=== PATIENT | female | born 1935 | race African-American/Black ===

== ENCOUNTER 2016-11-08 09:46 | Inpatient (IN) ==
[2016-11-08 10:19] LABS: Amorphous Crystals,Urine Occasional /HPF (Few); Apearance,Urine Slightly Hazy (Clear); Bacteria,Urine Moderate /HPF (Few); Bilirubin,Urine Negative (Negative); Blood, Urine Negative (Negative); Glucose,Urine (UA) Negative (Negative); Hyaline Casts,Urine 5 /LPF (0-3); Ketones,Urine Negative (Negative); Nitrite,Urine Positive (Negative); Protein,Urine Negative; RBC,Urine 1 /HPF (0-4); Squamous Epithelial Cell,Urine Occasional /HPF (0-10); Urine Color Straw (Yellow); Urine Specific Gravity 1.004 (1.001-1.035); Urine Urobilinogen < 2.0 EU/DL (0.2-1.0); WBC,Urine 31 /HPF (0-6)
[2016-11-08] MEDS ORDERED: cefTRIAXone 1,000 MG in SODIUM CHLORIDE 0.9% 100 ML IV STA (10:51)
[2016-11-08] MEDS ORDERED: cefTRIAXone 1,000 MG VIAL ONE (11:03)
[2016-11-08] MEDS ORDERED: SODIUM CHLORIDE 0.9% 100 ML IV ONE (11:04)
[2016-11-08 11:24] LABS: Eosinophils % 0.3 % (0.00-10.9); Hematocrit 41.1 VOL% (35.7-47.0); Hemoglobin 14.2 GM/DL (12.0-16.0); Immature Granulocytes % 0.3 %; Immature Granulocytes Absolute 0.01 #; Lymphocytes # 0.7 10*3/uL (1.4-4.0); Lymphocytes % 22.9 % (21.3-54.2); Mean Corpuscular HGB Conc 34.5 GM/DL (32-36); Mean Corpuscular Hemoglobin 30 PG (27-34); Mean Corpuscular Volume 85.6 FL (87-102); Mean Platelet Volume 10.5 FL (9.6-12.0); Monocytes # 0.4 10*3/uL (0.11-0.8); Monocytes % 11.8 % (1.7-12.7); Neutrophils # 1.9 10*3/uL (1.4-7.4); Neutrophils % 63.7 % (38.7-73.9); Platelet Count 222 T/CUMM (130-400); Red Cell Distribution Width 14.4 % (9.3-17.3)
[2016-11-08 11:57] LABS: Blood Urea Nitrogen 12 MG/DL (7-18); Calcium 9.7 MG/DL (8.5-10.1); Glucose 96 MG/DL (74-106); Magnesium 2.2 MG/DL (1.8-2.4); Potassium 3.3 MMOL/L (3.5-5.1); Sodium 136 MMOL/L (136-145); Troponin I Only < 0.015 NG/ML (0.00-0.045)
[2016-11-08 12:03] LABS: Free T4 (Free Thyroxine) 1.43 NG/DL (0.76-1.46); Thyroid Stimulating Hormone 1.99 uIU/ml (0.358-3.74)
--- NOTE | 2016-11-08 12:08 | XRay Report ---
XR chest 1V portable Indication: Chest pain and palpitations. Chest one view: Comparison 10/25/2016. Implanted electronic device of the left chest is unchanged. Heart size is normal. Aorta is tortuous. Lungs are clear. Pleural spaces are clear. Impression: No acute cardiopulmonary disease. PROCEDURE INTERPRETED AT [facility] DEPARTMENT OF RADIOLOGY Final Report Signed by: Jose Enriquez M.D.
--- NOTE | 2016-11-08 14:43 | Cardiology Consult Note ---
Assessment and Plan (1) Episode of syncope Status: Acute Assessment and plan: Not clear what this is. With everything else ongoing consideration of this is vasovagal episode related to her other symptoms especially GI. Apparently her event monitor did not turkey picker any kind of rate or rhythm disturbance of significance. At this time no further cardiac evaluation is needed. She would need to continue her monitor at home. Her other issues including GI etc. may need further evaluation at this time. Current Visit: Yes (2) Gastrointestinal complaints Status: Acute Assessment and plan: Sounds like she is developing diarrhea while in the emergency room. She has had some this prior to coming the emergency room. Also history indicates that with her antibiotic she has had some GI issues. Certainly this may have triggered a vasovagal response at home. Current Visit: Yes (3) Heart palpitations Status: Chronic Assessment and plan: This is a chronic recurrent issue for this patient. She is only having some PACs here in the emergency room. She does continue to wear her event monitor. Current Visit: No (4) Urinary tract infection Status: Acute Assessment and plan: This appears to be chronic recurrent on antibiotics frequently. These antibiotics may be causes a lot of her GI symptoms that she has had intermittently. Current Visit: No (5) GERD (gastroesophageal reflux disease) Status: Chronic Assessment and plan: This is a chronic recurrent issue for the patient that at times may be exacerbated by her antibiotics. Current Visit: No History of Present Illness - Data of Consult Patient: known to practice within the last 3 years Consult date: 11/08/16 Requesting Physician: Boogie Perez - Consult Narrative Reason for consult: Outpatient syncopal episode. History of present illness: Ms. Salcedo is a 81 year old female who has been followed by Dr. Fischer. Patient seen in the emergency room. She has had a 1 or 2 episodes of some SVT and her past history of SVT. She has had palpitations for 4-5 years been evaluated in [place] as well as here. I reviewed our office charts as well as hospital records. The patient apparently had an evaluation at [place] within the past year clean ischemic workup that was noninvasive that was reportedly negative. The patient is been in the hospital here and seen by Dr. Fischer as well as others having at least one documented ECG or more of rapid heart rate that may be a sinus versus SVT. The patient has been followed by Dr. fischer as an outpatient. Evaluation there has included echocardiogram that is really unremarkable. She has an event monitor only at this time. This morning she apparently had some of her palpitations symptomatology felt a little short of breath with this. Now she describes her palpitations being a fast heart rate. She had a book that had the blood pressure written down and heart rate that she measured at the time of her symptoms started. Her blood pressure is 150/68 with a heart rate is 74. She did not take any more. She describes what she felt was a syncopal episode after which she did not note any urinary incontinence or bowel incontinence. She did not traumatize herself. Her stomach did feel uneasy before and after this. She felt full finding across her forehead and face after this. EMS was summoned. I do not have those records. She has had similar episodes previously. She denies any chest pain. Since being in the emergency room her stomach is continue to bother her she states she has passed a lot of water what sounds like diarrhea. She has not had any nausea or vomiting but she has had a marked decreased appetite. She has had some weight loss over the last 8 months with a weight loss from a peak of 55.3 kg to 49.9 kg. She states when she gets up she feels like her heart running away with her sometimes pounding and that has happened some today. With the patient lying back she had a blood pressure 143/96 her heart rate of 84. I will see the patient up her blood pressure was 159/92 with a heart rate of 88. On standing the patient's blood pressure was 147/88 with a peak heart rate of 106 bpm and was sinus. I did note during my interview with the patient that she did have some PACs and occasional couplet. I did not appreciate any ventricular ectopy. In reviewing her history and her chart she has frequent recurrent urinary tract infections and on antibiotics persistently. She presently his parents to start antibiotics again for another urinary tract infection. Her lab work has been reviewed and her CBC does not reveal any acute changes other than her white count is now 3000. Her chemistries were really unremarkable. Potassium is 3.3. Troponins are nondetectable. Urinalysis with positive nitrites. A small number of leukocytes and moderate bacteria. Patient 's ECG today reveals sinus rhythm with PACs with some nonspecific T-wave abnormalities but no acute changes. In comparison to prior ECGs this is really unchanged. CC: - Home Medications and Allergies Home Medications: Home Medications Medication Instructions Recorded Confirmed Type Aspirin EC Tab 81 mg PO BID 03/04/16 11/08/16 History Atorvastatin [Lipitor] 10 mg PO BEDTIME 03/04/16 11/08/16 History Clorazepate [Tranxene] 3.75 mg PO BID PRN 03/04/16 11/08/16 History Metoprolol Succinate 50 mg PO QAM 03/04/16 11/08/16 History Polyethylene Glycol Powder 17 gm PO DAILY PRN 09/28/16 11/08/16 History [Miralax] Calcium (Carb)/Vit D 500-200 1 tablet PO DAILY 10/11/16 11/08/16 History [Oscal 500 + D] Potassium Chloride Cap/Tab [K Dur] 20 meq PO DAILY #14 tablet 10/25/16 11/08/16 Rx NIFEdipine [Nifedipine ER] 30 mg PO QAM 11/06/16 11/08/16 History Omeprazole [Prilosec] 20 mg PO DAILY #30 capsule 11/06/16 11/08/16 Rx Ondansetron Tab [Zofran Tab] 4 mg PO Q6H PRN #20 tablet 11/06/16 11/08/16 Rx Sulfameth/Trimeth 800-160 Tab 1 tablet PO BID 11/08/16 11/08/16 History [Bactrim DS Tab] Allergies/Adverse Reactions: Allergies Allergy/AdvReac Type Severity Reaction Status Date / Time ciprofloxacin [From Cipro] Allergy HIVES Verified 11/08/16 09:51 caffeine AdvReac Palpitation Verified 11/08/16 09:51 s Review of systems: Constitutional: She has been having weight loss with decreased appetite. No fever chills. Decreased appetite. Eyes: Denies visual changes or loss of vision Ears: Denies decreased hearing, vertigo Nose, mouth and throat: Denies oral pain or lesions. Neck: Denies thyromegaly or masses. No stiffness. Cardiovascular: as per HPI Respiratory: Denies cough, hemoptysis, dyspnea on exertion, wheezing, snoring. At times some dyspnea. Gastrointestinal: Complaining of some nonspecific abdominal discomfort as well as some diarrhea since she has made to the emergency room. So this was started at home. Genitourinary: Dysuria that is frequently has had recurrent urinary tract infections. Musculoskeletal: Has had some arthritic symptomatology. Neurological: States she had a syncopal episode prior to arrival here, please see history present illness.. Denies strokes. Psychiatric: Her symptoms palpitations make her anxious. Endocrine: Decreased appetite and weight. 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 She is anxious. She is frail-appearing. Head exam: normal inspection, atraumatic, some temporal wasting. Eye exam: Pupils are equal and reactive. EOMI. There is no trauma. Ear exam: Anatomically normal. Normal auditory acuity to conversation. Oral exam: No significant oral lesions. Neck exam: normal inspection no JVD. No carotid bruit. Trachea is in midline. Respiratory exam: clear to auscultation bilaterally posteriorly and anteriorly with good air movement. No rales, rhonchi or wheezes. Cardiovascular exam: regular rate and rhythm, no murmur or gallop or rub. No precordial lift. Chest wall/torso: Anatomically normal. No tenderness, deformity. Somewhat scaphoid chest. Peripheral Pulses: 2+ throughout. GI/Abdominal exam: Flat somewhat scaphoid. Bowel sounds are present. No specific tenderness but the patient is uncomfortable palpation. Musculoskeletal/Extremities exam: normal inspection without edema or cyanosis. No deformities or trauma. Neurological exam: alert, oriented X3. There is no gross neurologic deficits. Psychiatric exam: normal affect, normal mood. She is somewhat anxious. Cognitive function is grossly intact. Skin exam: Warm. No rashes or other skin lesions. Result/EKG - Labs CBC & BMP: 11/08/16 10:37 11/08/16 10:37 Lab Results: I have reviewed the past 24 hour labs (Potassium is low. Troponins are nondetectable. Her white cell count is low.) Labs: Laboratory Results - last 24 hr 11/08/16 11/08/16 11/08/16 10:02 10:37 10:37 WBC 3.0 L RBC 4.80 Hgb 14.2 Hct 41.1 MCV 85.6 L MCH 30 MCHC 34.5 RDW 14.4 Plt Count 222 MPV 10.5 Neut % (Auto) 63.7 Lymph % (Auto) 22.9 [place] % (Auto) 11.8 Eos % (Auto) 0.3 Baso % (Auto) 1.0 H Neut # (Auto) 1.9 Lymph # (Auto) 0.7 L [place] # (Auto) 0.4 Eos # (Auto) 0.0 Baso # (Auto) 0.0 Immature Gran % 0.3 Nucleated RBC % 0.0 Immature Gran # 0.01 Nucleated RBCs # 0.00 Sodium 136 Potassium 3.3 L Chloride 98 Carbon Dioxide 27 Anion Gap 14.3 BUN 12 Creatinine 0.80 GFR Calculation 69 BUN/Creatinine Ratio 15.00 Glucose 96 Calculated Osmolality 271.0 L Calcium 9.7 Magnesium 2.2 Troponin I < 0.015 Free T4 TSH 3rd Generation Urine Color Straw Urine Appearance Slightly hazy Urine pH 8.0 Ur Specific [place] 1.004 Urine Protein Negative Urine Glucose (UA) Negative Urine Ketones Negative Urine Blood Negative Urine Nitrate Positive H Urine Bilirubin Negative Urine Urobilinogen < 2.0 H Urine Leukocytes Small H Urine RBC 1 Urine WBC 31 Ur Squamous Epith Cells Occasional Amorphous Crystals Occasional Urine Bacteria Moderate Hyaline Casts 5 Ur Culture Indicated? Results to follow 11/08/16 10:37 WBC RBC Hgb Hct MCV MCH MCHC RDW Plt Count MPV Neut % (Auto) Lymph % (Auto) [place] % (Auto) Eos % (Auto) Baso % (Auto) Neut # (Auto) Lymph # (Auto) [place] # (Auto) Eos # (Auto) Baso # (Auto) Immature Gran % Nucleated RBC % Immature Gran # Nucleated RBCs # Sodium Potassium Chloride Carbon Dioxide Anion Gap BUN Creatinine GFR Calculation BUN/Creatinine Ratio Glucose Calculated Osmolality Calcium Magnesium Troponin I Free T4 1.43 TSH 3rd Generation 1.990 Urine Color Urine Appearance Urine pH Ur Specific [place] Urine Protein Urine Glucose (UA) Urine Ketones Urine Blood Urine Nitrate Urine Bilirubin Urine Urobilinogen Urine Leukocytes Urine RBC Urine WBC Ur Squamous Epith Cells Amorphous Crystals Urine Bacteria Hyaline Casts Ur Culture Indicated? - Impressions Impressions: ECG with sinus rhythm with PACs with nonspecific T-wave flattening. No acute changes.
--- NOTE | 2016-11-08 17:02 | Hospitalist History & Physical ---
Assessment and Plan - Time spent with patient Time spent with patient: Greater than 30 minutes (1) Episode of syncope Status: Acute Assessment and plan: Currently she is a patient of Dr leon, she is wearing a Life Watch monitor (1 month), for past history of SVT episodes. Will consult cardiology. Will repeat a.m. labs. Current Visit: Yes (2) Urinary tract infection Status: Acute Assessment and plan: Admit to hospitalist services. Will start antibiotics. Will monitor vital signs. Current Visit: No (3) Heart palpitations Status: Chronic Assessment and plan: Currently wearing a Life Watch Monitor and being followed by Dr Leon. Cardiology has been consulted. Current Visit: No History of Present Illness Chief complaint: syncope, belly pain History of present illness: Ms. Salcedo is a very pleasant 81 year old AA female presented to [facility] ED via EMS w/ c/o palpitations, syncopal episode, associated shortness of breath with onset this a.m. Pt stated that she was given antibiotics ( bactrium) for UTI by her primary care doctor and that she took the medication for the first time ever this morning about 6a.m. and 1 hour later this caused excessive palpitations and a syncopal episode, (witnessed by her son) only lasting for a few seconds to a minute. She recently seen Dr leon for a follow-up visit for chest pain and at that time a Life Watch Monitor was placed (1 month). She denies nausea or vomiting, fever or chills. 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 After brief discussion with Dr Perez and Dr Serrato, it was agreed patient would be admitted to hospitalist services for further evaluation. Home medications to reviewed and reconciliation to follow. Cardiology consulted and has seen her in the ER as well. Home Medications Medication Instructions Recorded Confirmed Type Aspirin EC Tab 81 mg PO BID 03/04/16 11/08/16 History Atorvastatin [Lipitor] 10 mg PO BEDTIME 03/04/16 11/08/16 History Clorazepate [Tranxene] 3.75 mg PO BID PRN 03/04/16 11/08/16 History Metoprolol Succinate 50 mg PO QAM 03/04/16 11/08/16 History Polyethylene Glycol Powder 17 gm PO DAILY PRN 09/28/16 11/08/16 History [Miralax] Calcium (Carb)/Vit D 500-200 1 tablet PO DAILY 10/11/16 11/08/16 History [Oscal 500 + D] Potassium Chloride Cap/Tab [K Dur] 20 meq PO DAILY #14 tablet 10/25/16 11/08/16 Rx NIFEdipine [Nifedipine ER] 30 mg PO QAM 11/06/16 11/08/16 History Omeprazole [Prilosec] 20 mg PO DAILY #30 capsule 11/06/16 11/08/16 Rx Ondansetron Tab [Zofran Tab] 4 mg PO Q6H PRN #20 tablet 11/06/16 11/08/16 Rx Sulfameth/Trimeth 800-160 Tab 1 tablet PO BID 11/08/16 11/08/16 History [Bactrim DS Tab] Allergies Allergy/AdvReac Type Severity Reaction Status Date / Time ciprofloxacin [From Cipro] Allergy HIVES Verified 11/08/16 09:51 caffeine AdvReac Palpitation Verified 11/08/16 09:51 s Medical,Surgical,& Family Hx - Medical History Cardio: History of: CHF, Hypertension Psychological: History of: Anxiety Disorders Endocrine: History of: Dyslipidemia Genitourinary: History of: Recurring Urinary Tract Infections, 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 Exam - Constitutional Vitals: Period Temp Pulse Resp BP Sys/Rodriguez Pulse Ox Last 24 Hr 98.1 F-98.1 F 83-83 18-18 183-183/101-101 100 General appearance: normal weight, no acute distress - Head Head exam: Present: normal inspection - Eye Eye exam: Present: EOMI Pupils: Present: MARIANO - Neck Neck exam: Present: normal inspection - Respiratory Respiratory exam: Present: clear to auscultation bilaterally. Absent: wheezes - Cardiovascular Cardiovascular exam: Present: regular rate and rhythm - GI/Abdominal GI/Abdominal exam: Present: normal bowel sounds, soft. Absent: firm, tenderness , rebound - Extremities Exam Extremities exam: Present: full ROM. Absent: edema - Neurological Exam Neurological exam: Present: alert, oriented X3 - Psychiatric Psychiatric exam: Present: normal affect, normal mood - Skin Skin exam: Present: normal color, warm, dry Results - Labs CBC & BMP: 11/08/16 10:37 11/08/16 10:37 Lab Results: I have reviewed the past 24 hour labs - Diagnostic Findings Procedure: X-ray: report reviewed by me (Noacute cardiopulmonary disease)
--- NOTE | 2016-11-08 17:28 | Emergency Department Note ---
Tata Drummond Gwan, am scribing for, and in the presence of, Boogie Perez M.D. 10:02. Ana Drummond Howard T, M.D., personally performed the services described in this documentation, ascribed by Katia Payton in my presence, and it is both accurate and complete . Arrival - Arrival Chief Complaint: Arrhythmia/Palpitations Stated Complaint: palpatations ED Nursing Triage Note: pt to er 11 via ems coming from home with c/o having palpitations with sob onset this am. pt denies any n/v or chest pain Mode of Arrival: Stretcher Limitations: No Limitations Source: Patient, Old Records Reviewed, RN Notes Reviewed Time Seen by Provider: 11/08/16 09:54 - History of Present Illness HPI Narrative: Patient is a 81 y/o black female, with a hx of CHF and HTN, who presents to the ED with a c/o palpitations and associated SOB with an onset this morning. She is a very good historian. Pt stated that she was given antibiotics for UTI and that she administered medication for the first time this morning and this caused excessive palpitations. This also caused weakness and syncope prompted her visit to the ED for further evaluation. She noted that her syncope only lasted "a minute" and that this has happened before. Patient was last seen in ED 10/25/2016 for chest pain and was disposition home with instruction to f/u with [employer]. Nurses noted that pt has f/u with Dr. Leon and has received a Life Watch monitor that is now attached to chest. She denies any N/V or having any chest pain. She confirmed that her monitor is in place for 1 month , that it "beeps" with palpitations and that her heart problems began 2013. No other problems/complaints reported in ED. Onset (ago): hour(s) Consistency: constant Severity: moderate Allergies/Adverse Reactions: Allergies Allergy/AdvReac Type Severity Reaction Status Date / Time ciprofloxacin [From Cipro] Allergy HIVES Verified 11/08/16 09:51 caffeine AdvReac Palpitation Verified 11/08/16 09:51 s Home Medications: Home Medications Medication Instructions Recorded Confirmed Type Aspirin EC Tab 81 mg PO BID 03/04/16 11/08/16 History Atorvastatin [Lipitor] 10 mg PO BEDTIME 03/04/16 11/08/16 History Clorazepate [Tranxene] 3.75 mg PO BID PRN 03/04/16 11/08/16 History Metoprolol Succinate 50 mg PO QAM 03/04/16 11/08/16 History Polyethylene Glycol Powder 17 gm PO DAILY PRN 09/28/16 11/08/16 History [Miralax] Calcium (Carb)/Vit D 500-200 1 tablet PO DAILY 10/11/16 11/08/16 History [Oscal 500 + D] Potassium Chloride Cap/Tab [K Dur] 20 meq PO DAILY #14 tablet 10/25/16 11/08/16 Rx NIFEdipine [Nifedipine ER] 30 mg PO QAM 11/06/16 11/08/16 History Omeprazole [Prilosec] 20 mg PO DAILY #30 capsule 11/06/16 11/08/16 Rx Ondansetron Tab [Zofran Tab] 4 mg PO Q6H PRN #20 tablet 11/06/16 11/08/16 Rx Sulfameth/Trimeth 800-160 Tab 1 tablet PO BID 11/08/16 11/08/16 History [Bactrim DS Tab] Review of System - Review of System 12 point system: reviewed and no additional remarkable complaints except as stated - Review of System Constitutional: Present: fever. Absent: chills Eyes: Absent: discharge ( ) Head/Ears/Nose/Throat: Absent: earache Respiratory: Absent: cough Cardiovascular: Present: as per HPI, palpitations. Absent: chest pain Gastrointestinal: Absent: abdominal pain, nausea, vomiting, diarrhea Genitourinary female: Absent: dysuria Musculoskeletal: Present: lower back pain. 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) - Surgical History Abdominal Surgeries: Surgical HX of: Cholecystectomy - Social History Smoking Status: Never smoker Frequency of Alcohol Use: None Type of Drug Use: None Exam Vital Signs: Vital Signs Temperature 98.1 F 11/08/16 09:46 Pulse Rate 60 11/08/16 17:21 Respiratory Rate 17 11/08/16 17:21 Blood Pressure 143/71 11/08/16 17:21 O2 Sat by Pulse Oximetry 100 11/08/16 17:21 - General General appearance: alert, in no apparent distress - Head Head exam: Present: atraumatic, normocephalic - Eye Eye exam: Present: normal appearance, PERRL - ENT ENT exam: Present: normal oropharynx, mucous membranes moist, TM's normal bilaterally, normal external ear exam - Neck Neck exam: Present: full ROM, trachea midline, tenderness - Chest Chest inspection: Present: symmetric chest wall rise. Absent: tenderness - Respiratory Respiratory exam: Present: normal lung sounds bilaterally. Absent: respiratory distress - Cardiovascular Cardiovascular exam: Present: regular rate, irregular rhythm - Abdominal Exam Abdominal exam: Present: soft, normal bowel sounds. Absent: distention - Extremities Exam Extremities exam: Present: full ROM. Absent: tenderness - Back Exam Back exam: Present: full ROM. Absent: tenderness - Neurological Exam Neurological exam: Present: alert, oriented X3, CN II-XII intact. Absent: motor sensory deficit - Psychiatric Psychiatric exam: Present: normal affect, normal mood - Skin Skin exam: Present: warm, dry, intact, normal color Course Course Narrative: Medical decision making: Patient evaluated by cardiology almond sorter who did not recommend any interventions today, instead recommended continued evaluation by Dr. Leon. However, patient does have chronic recurrent UTIs and diarrhea and some other issues and she is anxious about going home because of her palpitations and possible syncopal episode earlier today so we will recommend admission overnight, she was evaluated by hospitalist for further evaluation. Results - Labs CBC & BMP: 11/08/16 10:37 11/08/16 10:37 Lab Results: I have reviewed the patients labs Labs: Laboratory Tests 11/08/16 10:02 Urine pH 8.0 Ur Specific [place] 1.004 Urine Nitrate Positive H Urine Urobilinogen < 2.0 H Urine Leukocytes Small H Urine RBC 1 Urine WBC 31 Urine Bacteria Moderate Hyaline Casts 5 Laboratory Tests 11/08/16 10:37 WBC 3.0 L RBC 4.80 Hgb 14.2 Hct 41.1 MCV 85.6 L Plt Count 222 Baso % (Auto) 1.0 H Lymph # (Auto) 0.7 L Laboratory Tests 11/08/16 10:37 Sodium 136 Potassium 3.3 L Chloride 98 Carbon Dioxide 27 BUN 12 Creatinine 0.80 Calculated Osmolality 271.0 L - EKG EKG results: interpreted by ERMD, sinus rhythm (HR 77 with PVCs), normal QRS, normal ST/T, no acute changes - Diagnostic Findings Procedure: Chest x-ray: report reviewed by me (No acute cardiopulomary disease.) Disposition Clinical Impression: Sinus tachycardia, Ventricular premature beats, Supraventricular tachycardia, Heart palpitations, Urinary tract infection Case discussed with: patient Disposition: Still a Patient Condition: Stable Time of Disposition: 17:28
[2016-11-08] MEDS ORDERED: ACETAMINOPHEN 325 MG TABLET PO PRN (17:41)
[2016-11-08] MEDS ORDERED: ONDANSETRON 4 MG/2 ML VIAL IV PRN (17:41)
[2016-11-08] MEDS ORDERED: POLYETHYLENE GLYCOL POWDER 255 GM BOTTLE PO PRN (17:52)
[2016-11-08] MEDS ORDERED: CLORAZEPATE 3.75 MG TABLET PO PRN (17:52)
[2016-11-08] MEDS ORDERED: POLYETHYLENE GLYCOL POWDER 17 GM PACK PO PRN (18:00)
[2016-11-08] MEDS: GENTAMICIN INJ 100 MG in PREMIX 1 EACH IV SCH (21:10)
[2016-11-08] MEDS: POTASSIUM CHLORIDE 20 MEQ TABLET PO SCH (21:10)
[2016-11-08] MEDS: PANTOPRAZOLE 40 MG TABLET PO SCH (21:11)
[2016-11-08] MEDS: ENOXAPARIN 40 MG/0.4 ML SYRINGE SUBCUT SCH (21:11)
[2016-11-08] MEDS: ASPIRIN EC 81 MG TABLET PO SCH (21:11)
[2016-11-08] MEDS: ATORVASTATIN 10 MG TABLET PO SCH (21:11)
[2016-11-09] MEDS: POTASSIUM CHLORIDE 20 MEQ TABLET PO SCH ×3 (00:19→11:34)
[2016-11-09 04:48] LABS: Basophils # 0.1 10*3/uL (0.0-0.2); Basophils % 1.1 % (0.0-0.8); Eosinophils % 0.7 % (0.00-10.9); Hematocrit 37.7 VOL% (35.7-47.0); Hemoglobin 13.1 GM/DL (12.0-16.0); Lymphocytes # 2.2 10*3/uL (1.4-4.0); Lymphocytes % 48.8 % (21.3-54.2); Mean Corpuscular HGB Conc 34.7 GM/DL (32-36); Mean Corpuscular Hemoglobin 30 PG (27-34); Mean Corpuscular Volume 85.3 FL (87-102); Monocytes # 0.7 10*3/uL (0.11-0.8); Monocytes % 15.4 % (1.7-12.7); Neutrophils # 1.5 10*3/uL (1.4-7.4); Platelet Count 238 T/CUMM (130-400); Red Blood Count 4.42 MC/CUMM (3.8-5.5); Red Cell Distribution Width 14.7 % (9.3-17.3); White Blood Count 4.5 T/CUMM (4-12)
--- NOTE | 2016-11-09 04:49 | EKG Report ---
Stationary ECG Study [facility] ER Test Date: 11/08/2016 9:52:19 AM Pat Name: TERRY DODGE Department: Room: 284 Gender: F [employer] Process Server: : [id number] Requested by: Boogie Zaldivar Order Number: [id number] Reading MD: VALERIE SNYDER Intervals [place] Rate: 77 P: 83 VT: 209 QRS: 15 QRSD: 84 T: 61 QT: 376 QTc: 408 Interpretive Statements SINUS RHYTHM WITH OCCASIONAL SUPRAVENTRICULAR PREMATURE COMPLEXES NONSPECIFIC T-WAVE ABNORMALITY Electronically Signed On 11-09-16 06:17:26 CDT by VALERIE SNYDER [email or web address]
[2016-11-09 05:34] LABS: Troponin I Only 0.019 NG/ML (0.00-0.045)
[2016-11-09 05:40] LABS: Band Neutrophils 6 % (0-10); Lymphocytes 46 % (20-55); Metamyelocytes 5 %; Platelet Estimate Normal; Segmented Neutrophils 30 % (50-85); Total Cells Counted 100
[2016-11-09 05:53] LABS: Calcium 9.8 MG/DL (8.5-10.1); Magnesium 2.2 MG/DL (1.8-2.4); Osmolality,Calculated 271.8 MOS/KG (273-304)
--- NOTE | 2016-11-09 07:29 | EKG Report ---
Stationary ECG Study [facility] Test Date: 11/09/2016 7:32:27 AM Pat Name: TERRY DODGE Department: Room: 284 Gender: F Console Manager: NICKY : 1935 Requested by: Michael Serrato Order Number: [id number] Reading MD: VALERIE SNYDER Intervals [place] Rate: 58 P: 82 [place]: 187 QRS: 45 QRSD: 82 T: 44 QT: 437 QTc: 435 Interpretive Statements SINUS RHYTHM Electronically Signed On 11-09-16 16:39:58 CDT by VALERIE SNYDER [email or web address]
[2016-11-09] MEDS ORDERED: PANTOPRAZOLE 40 MG TABLET PO SCH ×2 (09:00)
--- NOTE | 2016-11-09 10:48 | Hospitalist Progress Note ---
Assessment and Plan - Time spent with patient Time spent with patient: Less than 30 minutes (1) Episode of syncope Status: Acute Assessment and plan: 11/09/16 - She is continues to wear Life Watch monitor at this time. She is being followed by cardiology and I appreciate recommendations for further care. Bilateral Carotid dopplers ordered. Will continue to monitor. Will repeat a.m. labs. Repeat EKG in a.m. 11/08/16-Currently she is a patient of Dr fischer, she is wearing a Life Watch monitor (1 month), for past history of SVT episodes. Will consult cardiology. Will repeat a.m. labs. Current Visit: Yes (2) Urinary tract infection Status: Acute Assessment and plan: 11/09/16 - Patient on gentamycin and rocephin. Urine cultures pending. Will continue antibiotic therapy. Will repeat a.m. labs. 11/08/16 - Admit to hospitalist services. Will start antibiotics. Will monitor vital signs. Current Visit: No (3) Heart palpitations Status: Chronic Assessment and plan: 11/09/16 - Patient did not notice any palpitations through the night. Currently wearing a Life Watch Monitor. Cardiology is following and appreciate further recommendations in care. 11/08/16 -Currently wearing a Life Watch Monitor and being followed by Dr Fischer. Cardiology has been consulted. Current Visit: No Hospitalist: Subjective Interval history: 11/09/16 - Patient seen and chart reviewed. Ms Salcedo verbalized a good night. She reports her vision is more clear this morning and she did not notice any new palpitations throughout the night. She continues to wear Life Watch monitor. She feels much better this morning and appears more energetic. She verbalized eating her breakfast and tolerated well. She is being wheeled down to have Carotid Dopplers this a.m. Exam - Constitutional Vitals: Period Temp Pulse Resp BP Sys/Rodriguez Pulse Ox Last 24 Hr 98.2 F-98.5 F 56-62 16-18 96-143/61-71 95-100 General appearance: normal weight - Head Head exam: Present: normal inspection - Eye Eye exam: Present: EOMI Pupils: Present: MARIANO - Respiratory Respiratory exam: Present: clear to auscultation bilaterally. Absent: wheezes - Cardiovascular Cardiovascular exam: Present: regular rate and rhythm - GI/Abdominal GI/Abdominal exam: Present: normal bowel sounds, soft. Absent: tenderness, rebound - Extremities Exam Extremities exam: Present: normal inspection. Absent: edema - Neurological Exam Neurological exam: Present: alert, oriented X3, CN II-XII intact - Psychiatric Psychiatric exam: Present: normal affect, normal mood - Skin Skin exam: Present: normal color, warm, dry Results - Labs CBC & BMP: 11/09/16 04:12 11/09/16 04:12 Lab Results: I have reviewed the past 24 hour labs
--- NOTE | 2016-11-09 10:50 | Cardiology Progress Note ---
Assessment and Plan (1) Episode of syncope Status: Acute Assessment and plan: Etiology is not clear. There is no demonstrable evidence of dysrhythmia. She had a event monitor on place he did not apparently detect anything cardiac standpoint. She is done well since admission. Current Visit: Yes (2) Gastrointestinal complaints Status: Acute Assessment and plan: This is better today. Question how much of this is associated with her antibiotics for UTIs. Current Visit: Yes (3) Heart palpitations Status: Chronic Assessment and plan: This is a chronic recurrent issue for this patient. This is been ongoing for 5 years. She has had no rhythm disturbance since admission. Current Visit: No (4) Urinary tract infection Status: Acute Assessment and plan: This appears to be chronic and recurrent on antibiotics frequently. These antibiotics may be causes a lot of her GI symptoms that she has had intermittently. Current Visit: No (5) GERD (gastroesophageal reflux disease) Status: Chronic Assessment and plan: This is a chronic recurrent issue for the patient that at times may be exacerbated by her antibiotics. Current Visit: No Cardiology - PN: Subj Interval history: Ms. Salcedo she done well since yesterday. She seems to feel better. States her stomach is not bothering her. She just has this persistent dizziness and has no association necessarily with position. Her vital signs overall things are stable. Heart rates are stable. Little slower daily were yesterday. I think some of her issue in this regard as she gets anxious. Also wonder if she is taking her medications at home like she is supposed to. She though generally feels much better today and has no specific new complaints. Cardiac humphreys she is doing well. Reviewing her telemetry she has been in sinus rhythm with some slight bradycardia. No tachycardia or significant bradyarrhythmias. She does have upcoming follow-up with Dr. Arley fischer which she needs to keep. Exam (Progress Note) - Constitutional Vitals: Period Temp Pulse Resp BP Sys/Rodriguez Pulse Ox Last 24 Hr 98.2 F-98.5 F 56-62 16-18 96-143/61-71 95-100 Exam: General appearance: Underweight, no acute distress, she can walk around the room on my arrival HEENT exam: normal inspection, atraumatic Neck exam: normal inspection no JVD. No carotid bruit. Trachea is in midline Respiratory/lungs exam: clear to auscultation bilaterally good air movement. Cardiovascular exam: regular rate and rhythm, no murmur or gallop or rub. No precordial lift. Chest wall exam: nontender GI/Abdominal exam: normal bowel sounds, soft, nontender, no abdominal bruits or pulsatile masses. Extremeties/musculoskeletal: normal inspection without edema or cyanosis. Neurological exam: alert, oriented X3, no focal deficits Psychiatric exam: normal affect, normal mood. Cognitive function is grossly normal. Skin exam: normal color, warm Result/EKG - Labs CBC & BMP: 11/09/16 04:12 11/09/16 04:12 Lab Results: I have reviewed the past 24 hour labs (Stable.) Labs: Laboratory Results - last 24 hr 11/08/16 11/08/16 11/08/16 10:37 10:37 10:37 WBC 3.0 L RBC 4.80 Hgb 14.2 Hct 41.1 MCV 85.6 L MCH 30 MCHC 34.5 RDW 14.4 Plt Count 222 MPV 10.5 Neut % (Auto) 63.7 Lymph % (Auto) 22.9 [place] % (Auto) 11.8 Eos % (Auto) 0.3 Baso % (Auto) 1.0 H Neut # (Auto) 1.9 Lymph # (Auto) 0.7 L [place] # (Auto) 0.4 Eos # (Auto) 0.0 Baso # (Auto) 0.0 Total Counted Immature Gran % 0.3 Nucleated RBC % 0.0 Immature Gran # 0.01 Segmented Neutrophils Band Neutrophils Lymphocytes Monocytes Metamyelocytes Nucleated RBCs # 0.00 Platelet Estimate Sodium 136 Potassium 3.3 L Chloride 98 Carbon Dioxide 27 Anion Gap 14.3 BUN 12 Creatinine 0.80 GFR Calculation 69 BUN/Creatinine Ratio 15.00 Glucose 96 Calculated Osmolality 271.0 L Calcium 9.7 Magnesium 2.2 Total Creatine Kinase Troponin I < 0.015 B-Natriuretic Peptide Free T4 1.43 TSH 3rd Generation 1.990 11/09/16 11/09/16 11/09/16 04:12 04:12 04:12 WBC 4.5 D RBC 4.42 Hgb 13.1 Hct 37.7 MCV 85.3 L MCH 30 MCHC 34.7 RDW 14.7 Plt Count 238 MPV 11.0 Neut % (Auto) 34.0 L Lymph % (Auto) 48.8 [place] % (Auto) 15.4 H Eos % (Auto) 0.7 Baso % (Auto) 1.1 H Neut # (Auto) 1.5 Lymph # (Auto) 2.2 [place] # (Auto) 0.7 Eos # (Auto) 0.0 Baso # (Auto) 0.1 Total Counted 100 Immature Gran % 0.0 Nucleated RBC % 0.0 Immature Gran # 0.00 Segmented Neutrophils 30 L Band Neutrophils 6 Lymphocytes 46 Monocytes 13 Metamyelocytes 5 Nucleated RBCs # 0.00 Platelet Estimate Normal Sodium 137 Potassium 4.0 Chloride 103 Carbon Dioxide 23 Anion Gap 15.0 BUN 12 Creatinine 0.90 GFR Calculation 60 BUN/Creatinine Ratio 13.00 Glucose 80 Calculated Osmolality 271.8 L Calcium 9.8 Magnesium 2.2 Total Creatine Kinase Troponin I B-Natriuretic Peptide 90 Free T4 TSH 3rd Generation 11/09/16 04:12 WBC RBC Hgb Hct MCV MCH MCHC RDW Plt Count MPV Neut % (Auto) Lymph % (Auto) [place] % (Auto) Eos % (Auto) Baso % (Auto) Neut # (Auto) Lymph # (Auto) [place] # (Auto) Eos # (Auto) Baso # (Auto) Total Counted Immature Gran % Nucleated RBC % Immature Gran # Segmented Neutrophils Band Neutrophils Lymphocytes Monocytes Metamyelocytes Nucleated RBCs # Platelet Estimate Sodium Potassium Chloride Carbon Dioxide Anion Gap BUN Creatinine GFR Calculation BUN/Creatinine Ratio Glucose Calculated Osmolality Calcium Magnesium Total Creatine Kinase 62 Troponin I 0.019 B-Natriuretic Peptide Free T4 TSH 3rd Generation - Impressions Impressions: Telemetry was sinus rhythm.
--- NOTE | 2016-11-09 11:21 | Ultrasound Report ---
Exam: Carotid ultrasound Date: 11/09/2016 Comparison: 09/24/2013 Technique: Duplex scans of the carotid and vertebral arteries using B-mode/Ivey scale imaging and Doppler spectral analysis and color flow. Reason: Syncope Findings: The right ICA measures 4.2 mm in diameter and the left ICA measures 5.2 mm in diameter. Color-flow documented in the visualized arteries. The peak systolic velocities are as follows: Right CCA: 71.6 cm/s Right ICA: 70.0 cm/s Right ECA: 47.9 cm/s Left CCA: 101.7 cm/s Left ICA: 66.2 cm/s Left ECA: 53.6 cm/s The peak systolic ICA/CCA velocity ratios are as follows: 1.0 on the right and 0.7 on the left. Antegrade flow is present in both vertebral arteries. Impression:[Less than 50% stenosis in both internal carotid arteries with heterogeneous plaque formation. Antegrade flow in both vertebral arteries.] The Society of Radiologists in Ultrasound consensus conference criteria was used. The Ultrasound images were captured and stored. PROCEDURE INTERPRETED AT [facility] DEPARTMENT OF RADIOLOGY Final Report Signed by: Dr. Mona Perera
[2016-11-09] MEDS: ASPIRIN EC 81 MG TABLET PO SCH ×2 (11:34→21:11)
[2016-11-09] MEDS: METOPROLOL SUCCINATE XL 50 MG TABLET PO SCH (11:35)
[2016-11-09] MEDS: PANTOPRAZOLE 40 MG TABLET PO SCH ×2 (11:35→21:11)
[2016-11-09] MEDS: CALCIUM (CARBONATE)/VITAMIN D 500 MG-200 UNIT TABLET PO SCH (11:36)
[2016-11-09] MEDS: cefTRIAXone 1,000 MG in SODIUM CHLORIDE 0.9% 100 ML IV SCH (11:37)
[2016-11-09] MEDS: GENTAMICIN INJ 100 MG in PREMIX 1 EACH IV SCH (14:40)
[2016-11-09] MEDS: ATORVASTATIN 10 MG TABLET PO SCH (21:10)
[2016-11-09] MEDS: ENOXAPARIN 40 MG/0.4 ML SYRINGE SUBCUT SCH (21:11)
[2016-11-10 04:59] LABS: Basophils % 0.9 % (0.0-0.8); Eosinophils # 0.1 10*3/uL (0.0-0.87); Eosinophils % 2.1 % (0.00-10.9); Hematocrit 34.5 VOL% (35.7-47.0); Hemoglobin 11.8 GM/DL (12.0-16.0); Lymphocytes # 1.9 10*3/uL (1.4-4.0); Mean Corpuscular HGB Conc 34.2 GM/DL (32-36); Mean Corpuscular Hemoglobin 29 PG (27-34); Mean Corpuscular Volume 85.8 FL (87-102); Mean Platelet Volume 10.7 FL (9.6-12.0); Monocytes # 0.4 10*3/uL (0.11-0.8); Platelet Count 213 T/CUMM (130-400); Red Blood Count 4.02 MC/CUMM (3.8-5.5); White Blood Count 3.4 T/CUMM (4-12)
[2016-11-10 05:28] LABS: Calcium 8.9 MG/DL (8.5-10.1); Magnesium 2.2 MG/DL (1.8-2.4); Osmolality,Calculated 275.7 MOS/KG (273-304); Potassium 4.4 MMOL/L (3.5-5.1)
[2016-11-10 05:30] LABS: Eosinophils 2 % (0-10); Hypochromasia 1+; Lymphocytes 55 % (20-55); Platelet Estimate Adequate; Segmented Neutrophils 31 % (50-85); Total Cells Counted 100
--- NOTE | 2016-11-10 07:53 | EKG Report ---
Stationary ECG Study [facility] Test Date: 11/10/2016 7:55:42 AM Pat Name: TERRY DODGE Department: Room: 284 Gender: F Serologist: : 1935 Requested by: Mary Padilla Order Number: [id number] Reading MD: JAYNA BYRD Intervals [place] Rate: 50 P: 79 MD: 214 QRS: 22 QRSD: 87 T: 32 QT: 430 QTc: 404 Interpretive Statements SINUS BRADYCARDIA WITH MILDLY PROLONGED MD INTERVAL POSSIBLE RIGHT VENTRICULAR CONDUCTION DELAY Electronically Signed On 11-10-16 09:21:00 CDT by JAYNA BYRD [email or web address]
[2016-11-10] MEDS: CALCIUM (CARBONATE)/VITAMIN D 500 MG-200 UNIT TABLET PO SCH (10:23)
[2016-11-10] MEDS: ASPIRIN EC 81 MG TABLET PO SCH ×2 (10:23→22:41)
[2016-11-10] MEDS: METOPROLOL SUCCINATE XL 50 MG TABLET PO SCH (10:23)
[2016-11-10] MEDS: POTASSIUM CHLORIDE 20 MEQ TABLET PO SCH (10:23)
[2016-11-10] MEDS: PANTOPRAZOLE 40 MG TABLET PO SCH ×2 (10:23→22:40)
[2016-11-10] MEDS: cefTRIAXone 1,000 MG in SODIUM CHLORIDE 0.9% 100 ML IV SCH ×2 (10:26→12:12)
[2016-11-10] MEDS: GENTAMICIN INJ 100 MG in PREMIX 1 EACH IV SCH (12:11)
--- NOTE | 2016-11-10 12:39 | Hospitalist Progress Note ---
Assessment and Plan (1) Heart palpitations Status: Resolved Current Visit: Yes (2) Urinary tract infection Status: Acute Current Visit: Yes Qualifiers: Urinary tract infection type: acute cystitis Hematuria presence: without hematuria Qualified Code(s): N30.00 - Acute cystitis without hematuria Hospitalist: Subjective Interval history: Patient seen and examined. No acute events overnight. Case discussed with nursing staff. Labs reviewed. Repeat urine culture without growth. Urine culture from 713 reviewed. Will resume Bactrim. I do not think her presenting symptoms were related to the antibiotic. Remains in normal sinus rhythm. Carotid ultrasound negative. Exam - Constitutional Vitals: Period Temp Pulse Resp BP Sys/Rodriguez Pulse Ox Last 24 Hr 97.0 F-98.9 F 49-73 16-18 97-123/58-70 98-100 Exam: Constitutional System: No distress. No tremulousness. Head: Normocephalic, atraumatic. Ears, Nose and Throat System: No pain or tenderness. No epistaxis or discharge Eyes System: Pupils equal, round, and reactive. Extraocular muscles intact. Neck: Supple, without adenopathy, No jugular venous distention. No thyromegaly, neck mass, or prior surgery apparent. Respiratory System: Chest clear to auscultation. Cardiovascular System: Heart with regular rate and rhythm. No murmur. GI System: Abdomen soft, nontender. Normo active bowel sounds present. Musculoskeletal System: limbs with no pedal edema. Full distal pulses. Neurological System: No discernable sensory deficit. No aphasia Psychiatric System: Conversation is rational Results - Labs CBC & BMP: 11/10/16 04:24 11/10/16 04:24 Lab Results: I have reviewed the past 24 hour labs
[2016-11-10] MEDS ORDERED: SULFAMETHOX/TRIMETHOPRIM 400-80 MG TABLET PO SCH (14:30)
--- NOTE | 2016-11-10 14:31 | Cardiology Progress Note ---
<Hilda Orozco - Last Filed: 11/10/16 13:50> Assessment and Plan (1) Episode of syncope Status: Acute Assessment and plan: See plan of care listed below. Current Visit: Yes (2) Gastrointestinal complaints Status: Resolved Assessment and plan: See plan of care listed below. Current Visit: Yes (3) Urinary tract infection Status: Acute Assessment and plan: See plan of care listed below. Current Visit: Yes Qualifiers: Urinary tract infection type: acute cystitis Hematuria presence: without hematuria Qualified Code(s): N30.00 - Acute cystitis without hematuria (4) Heart palpitations Status: Resolved Assessment and plan: See plan of care listed below. Current Visit: Yes (5) GERD (gastroesophageal reflux disease) Status: Chronic Assessment and plan: See plan of care listed below. Current Visit: No Cardiology - PN: Subj Interval history: Embossing Press Operator: Dr. Leon SUMMARY Ms. Salcedo is a 81 year old female who has been followed by Dr. Leon. She is a past medical history of SVT and hypertension. The patient apparently had an evaluation at [place] within the past year clean ischemic workup that was noninvasive that was reportedly negative. The patient is been in the hospital here and seen by Dr. Leon as well as others having at least one documented ECG or more of rapid heart rate that may be a sinus versus SVT. She presented to [facility] with complaints of palpitations and syncope. She had an event monitor on at the time which did not reveal any arrhythmia. NOVEMBER 10 Patient was seen and examined on the telemetry unit. She has done well overnight and is without complaints this morning. She has had no further complaints of dizziness, near syncope or palpitations. No dysrhythmia or ectopy noted per video machines mechanic. From a cardiac standpoint, patient is doing reasonably well. She does have an upcoming follow-up appoint with Dr. Arley Leon which she has been instructed to keep. I will discuss further with Dr. Rodriguez and await his additional recommendations. ASSESSMENT/PLAN: 1. SYNCOPE - Etiology is not clear. There is no demonstrable evidence of dysrhythmia. She had a event monitor on place he did not apparently detect anything cardiac standpoint. Reviewing her telemetry she has been in sinus rhythm with some slight bradycardia. No tachycardia or significant bradyarrhythmias. She does have upcoming follow-up with Dr. Arley leon which she needs to keep. 2. HEART PALPITATIONS - This is a chronic recurrent issue for this patient. This is been ongoing for 5 years. She has had no rhythm disturbance since admission. 3. UTI - Management per attending. 4. GERD - Continue PPI. 5. GASTROINTESTINAL COMPLAINTS - Resolved. Exam (Progress Note) - Constitutional Vitals: Period Temp Pulse Resp BP Sys/Rodriguez Pulse Ox Last 24 Hr 96.6 F-98.9 F 48-73 16-18 97-135/58-70 98-100 Exam: General: Appears well with no apparent distress. Pleasant and cooperative. Appears comfortable. Underweight. HEENT: PERRL, normocephalic, atraumatic. Mucous membranes moist. No jaundice noted. Conjunctiva moist and clear, sclerae anicteric Neck: No JVD/HJR, no thyromegaly or lymphadenopathy noted. No carotid bruit appreciated Cardiac: Regular rate and rhythm. No murmur rub or gallop. Lungs: Clear to auscultation without accessory muscle use to assist the respiratory pattern. Not requiring oxygen. Abdomen: Soft, bowel sounds normoactive. Nontender and nondistended. No abdominal bruit or thrill noted. No masses noted. Extremities: No clubbing, cyanosis noted. No edema noted. Upper extremity pulses 2+. Lower extremity pulses 2+. Capillary refill less than 3 seconds. Skin: No unusual lesions or rashes. No skin breakdown appreciated. Neuro: Awake, alert and oriented 3. Moves all extremities well without hemiparesis or paralysis. No essential tremor is appreciated. Result/EKG - Labs CBC & BMP: 11/10/16 04:24 11/10/16 04:24 Lab Results: I have reviewed the past 24 hour labs Labs: Laboratory Results - last 24 hr 11/10/16 11/10/16 04:24 04:24 WBC 3.4 L RBC 4.02 Hgb 11.8 L Hct 34.5 L MCV 85.8 L MCH 29 MCHC 34.2 RDW 15.0 Plt Count 213 MPV 10.7 Neut % (Auto) 28.0 L Lymph % (Auto) 56.0 H [place] % (Auto) 13.0 H Eos % (Auto) 2.1 Baso % (Auto) 0.9 H Neut # (Auto) 1.0 L Lymph # (Auto) 1.9 [place] # (Auto) 0.4 Eos # (Auto) 0.1 Baso # (Auto) 0.0 Total Counted 100 Immature Gran % 0.0 Nucleated RBC % 0.0 Immature Gran # 0.00 Segmented Neutrophils 31 L Lymphocytes 55 Monocytes 12 Eosinophils 2 Nucleated RBCs # 0.00 Platelet Estimate Adequate Hypochromasia 1+ Morphology Comment Sodium 138 Potassium 4.4 Chloride 107 Carbon Dioxide 24 Anion Gap 11.4 BUN 18 Creatinine 1.00 GFR Calculation 53 BUN/Creatinine Ratio 18.00 Glucose 76 Calculated Osmolality 275.7 Calcium 8.9 Magnesium 2.2 <Khurram Rodriguez - Last Filed: 11/10/16 17:21> Exam (Progress Note) - Constitutional Vitals: Period Temp Pulse Resp BP Sys/Rodriguez Pulse Ox Last 24 Hr 96.6 F-97.2 F 48-73 16-18 97-135/58-70 99-100 Result/EKG - Labs CBC & BMP: 11/10/16 04:24 11/10/16 04:24 Labs: Laboratory Results - last 24 hr 11/10/16 11/10/16 04:24 04:24 WBC 3.4 L RBC 4.02 Hgb 11.8 L Hct 34.5 L MCV 85.8 L MCH 29 MCHC 34.2 RDW 15.0 Plt Count 213 MPV 10.7 Neut % (Auto) 28.0 L Lymph % (Auto) 56.0 H [place] % (Auto) 13.0 H Eos % (Auto) 2.1 Baso % (Auto) 0.9 H Neut # (Auto) 1.0 L Lymph # (Auto) 1.9 [place] # (Auto) 0.4 Eos # (Auto) 0.1 Baso # (Auto) 0.0 Total Counted 100 Immature Gran % 0.0 Nucleated RBC % 0.0 Immature Gran # 0.00 Segmented Neutrophils 31 L Lymphocytes 55 Monocytes 12 Eosinophils 2 Nucleated RBCs # 0.00 Platelet Estimate Adequate Hypochromasia 1+ Morphology Comment Sodium 138 Potassium 4.4 Chloride 107 Carbon Dioxide 24 Anion Gap 11.4 BUN 18 Creatinine 1.00 GFR Calculation 53 BUN/Creatinine Ratio 18.00 Glucose 76 Calculated Osmolality 275.7 Calcium 8.9 Magnesium 2.2
[2016-11-10] MEDS ORDERED: SULFAMETHOX/TRIMETHOPRIM 800-160 MG TABLET PO ONE (15:00)
[2016-11-10] MEDS ORDERED: SULFAMETHOX/TRIMETHOPRIM 800-160 MG TABLET PO SCH (21:00)
[2016-11-10] MEDS: ENOXAPARIN 40 MG/0.4 ML SYRINGE SUBCUT SCH (22:39)
[2016-11-10] MEDS: SULFAMETHOX/TRIMETHOPRIM 800-160 MG TABLET PO SCH (22:40)
[2016-11-10] MEDS: ATORVASTATIN 10 MG TABLET PO SCH (22:41)
[2016-11-10] MEDS: DESITIN 4OZ/NYSTATIN 15 GRAM MIXTURE PASTE TOP SCH (22:52)
[2016-11-11 05:17] LABS: Basophils # 0.1 10*3/uL (0.0-0.2); Basophils % 1.5 % (0.0-0.8); Eosinophils # 0.1 10*3/uL (0.0-0.87); Eosinophils % 1.7 % (0.00-10.9); Hematocrit 38.7 VOL% (35.7-47.0); Hemoglobin 13.2 GM/DL (12.0-16.0); Lymphocytes # 2.4 10*3/uL (1.4-4.0); Lymphocytes % 57.5 % (21.3-54.2); Mean Corpuscular HGB Conc 34.1 GM/DL (32-36); Mean Corpuscular Hemoglobin 29 PG (27-34); Mean Platelet Volume 11.2 FL (9.6-12.0); Monocytes # 0.6 10*3/uL (0.11-0.8); Monocytes % 13.6 % (1.7-12.7); Neutrophils # 1.1 10*3/uL (1.4-7.4); Neutrophils % 25.7 % (38.7-73.9); Platelet Count 242 T/CUMM (130-400); Red Cell Distribution Width 14.8 % (9.3-17.3); White Blood Count 4.1 T/CUMM (4-12)
[2016-11-11 05:45] LABS: Burr Cells Slight; Hypochromasia Slight; Lymphocytes 53 % (20-55); Platelet Estimate Adequate; Segmented Neutrophils 29 % (50-85); Total Cells Counted 100
[2016-11-11 05:54] LABS: Calcium 9.4 MG/DL (8.5-10.1); Magnesium 2.3 MG/DL (1.8-2.4); Potassium 4.5 MMOL/L (3.5-5.1)
[2016-11-11] MEDS ORDERED: METOPROLOL SUCCINATE XL 25 MG TABLET PO SCH (09:00)
[2016-11-11] MEDS: CALCIUM (CARBONATE)/VITAMIN D 500 MG-200 UNIT TABLET PO SCH (10:27)
[2016-11-11] MEDS: PANTOPRAZOLE 40 MG TABLET PO SCH (10:27)
[2016-11-11] MEDS: POTASSIUM CHLORIDE 20 MEQ TABLET PO SCH (10:27)
[2016-11-11] MEDS: ASPIRIN EC 81 MG TABLET PO SCH (10:27)
[2016-11-11] MEDS: SULFAMETHOX/TRIMETHOPRIM 800-160 MG TABLET PO SCH (10:34)
[2016-11-11] MEDS: DESITIN 4OZ/NYSTATIN 15 GRAM MIXTURE PASTE TOP SCH (11:52)
[2016-11-11] MEDS ORDERED: NITROFURANTOIN MACRO/MONO 100 MG CAPSULE PO SCH (12:00)
[2016-11-11] MEDS ORDERED: GENTAMICIN INJ 100 MG in PREMIX 1 EACH IV SCH (12:00)
--- NOTE | 2016-11-11 12:02 | Discharge Summary ---
Hospital Course - Hospital Course Hospital Course: 81-year-old female admitted to the hospital with urinary tract infection and syncopal episode and palpitations. The patient's being worked up for palpitations by her lap runner Dr. Leon and is wearing a recorder/event monitor. The device did not detect any tachyarrhythmias or cause for her episode. She reports feeling ill after taking Bactrim for her urinary tract infection. The patient was admitted to the hospital and started on IV antibiotics. A urine culture was obtained and found to be unremarkable. The previous urine culture from 2 days prior was positive for staphylococcal warneri that was sensitive to Bactrim and nitrofurantoin. The patient was switched from Bactrim to Macrobid and discharged home. She has instructions to follow-up with her primary care physician and lap runner as an outpatient. She suffered no acute events during the course of hospitalization. She was afebrile and her vital signs are stable. Home medications were reviewed and reconciled. She was given a new prescription for Macrobid. - Time spent with patient Time with patient DS: Greater than 30 minutes (Total discharge time for this patient, including [id number] time, clinical documentation, medication reconciliation, and discharge planning was 41 minutes.) Diagnosis - Discharge Diagnosis (1) Heart palpitations Status: Resolved (2) Urinary tract infection Status: Acute Specialty Discharge - Follow Up or Referrals Follow up with: Arley Leon MD [Physician] - 12/03/16 1:30 pm (ONE TO TWO WEEK ) Discharge Plan - Discharge Data Disposition: Disch To Home/Self Care Condition at Discharge: Stable Discharge Diet: advance to your usual diet Activity: resume usual activities as tolerated Hygiene: no restrictions Weight Bearing at Discharge: full weight bearing Driving: no restrictions Contact your physician if you experience:: fever over 101 - Discharge Medications New Nitrofurantoin Macro/[place] [Macrobid] 100 mg PO BID #10 capsule Continue Metoprolol Succinate 50 mg PO QAM Atorvastatin [Lipitor] 10 mg PO BEDTIME Aspirin EC Tab 81 mg PO BID Clorazepate [Tranxene] 3.75 mg PO BID PRN PRN Reason: Anxiety Polyethylene Glycol Powder [Miralax] 17 gm PO DAILY PRN PRN Reason: Constipation Potassium Chloride Cap/Tab [K Dur] 20 meq PO DAILY #14 tablet Omeprazole [Prilosec] 20 mg PO DAILY #30 capsule Ondansetron Tab [Zofran Tab] 4 mg PO Q6H PRN #20 tablet PRN Reason: Nausea/Vomiting Calcium (Carb)/Vit D 500-200 [Oscal 500 + D] 1 tablet PO DAILY NIFEdipine [Nifedipine ER] 30 mg PO QAM - Follow Up or Referral Follow Up: Arley Leon MD [Physician] - 12/03/16 1:30 pm (ONE TO TWO WEEK ) - Forms/Instructions Additional Discharge Instructions: Follow-up with your PCP and lap runner Exam - Constitutional Vitals: Period Temp Pulse Resp BP Sys/Rodriguez Pulse Ox Last 24 Hr 97.1 F-97.8 F 53-78 18-18 115-163/58-86 97-100 Discharge Results Procedures and tests throughout hospitalization: Pending Orders 11/12/16 04:00 BMP w/ Mg [Basic Metabolic Panel w/Mg] IN AM CBC [Comp Blood Count Auto Diff] IN AM 11/13/16 04:00 BMP w/ Mg [Basic Metabolic Panel w/Mg] IN AM CBC [Comp Blood Count Auto Diff] IN AM 11/14/16 04:00 BMP w/ Mg [Basic Metabolic Panel w/Mg] IN AM CBC [Comp Blood Count Auto Diff] IN AM Labs on day of discharge: Labs from last 24 hours 11/11/16 11/11/16 04:19 04:19 WBC 4.1 RBC 4.50 Hgb 13.2 Hct 38.7 MCV 86.0 L MCH 29 MCHC 34.1 RDW 14.8 Plt Count 242 MPV 11.2 Neut % (Auto) 25.7 L Lymph % (Auto) 57.5 H [place] % (Auto) 13.6 H Eos % (Auto) 1.7 Baso % (Auto) 1.5 H Neut # (Auto) 1.1 L Lymph # (Auto) 2.4 [place] # (Auto) 0.6 Eos # (Auto) 0.1 Baso # (Auto) 0.1 Total Counted 100 Immature Gran % 0.0 Nucleated RBC % 0.0 Immature Gran # 0.00 Segmented Neutrophils 29 L Lymphocytes 53 Monocytes 16 H Basophils 2.0 H Nucleated RBCs # 0.00 Platelet Estimate Adequate Hypochromasia Slight Marl[place] Cells Slight Morphology Comment Sodium 136 Potassium 4.5 Chloride 102 Carbon Dioxide 25 Anion Gap 13.5 BUN 14 Creatinine 0.90 GFR Calculation 60 BUN/Creatinine Ratio 15.00 Glucose 89 Calculated Osmolality 271.0 L Calcium 9.4 Magnesium 2.3 DS: Provider Date of admission: 11/08/16 16:56 Primary care physician: Ximena Ramos M.D. Attending physician on admission: Jose Berry MD Consults: 11/08/16 17:25 Consult to Physician [CONS] Routine Comment: patient of Dr Leon Consulting Provider: Jose Pagan When should Consulting Provider be notified: In am Consult Notification Comment: 11/08/16 - Patient was already seen in the ER by Dr Pagan today Patient of Dr leon 11/08/16 18:30 Consult to Pharmacy [CONS] Routine Reason for Pharmacy Consult: Dose/Manage Gentamicin Discharging clinician: Yoli Segal MD Expected date of discharge: 11/11/16
[2016-11-11 17:59] VITALS: BP 149/82
== END 2016-11-11 18:10 | disposition home or self-care (01) | DRG 309 ==
LOC: EDUNIT# → N.ED 09:46 → N.EDINP 16:56 → SUATTDRO 16:56 → N.TELEN 17:43
PROVIDERS: ADMIT Internal Medicine; ATTEND Family Medicine

== ENCOUNTER 2017-07-09 09:49 | Inpatient (IN) ==
[2017-07-09 11:38] LABS: Basophils % 0.5 % (0.0-0.8); Hematocrit 37.3 VOL% (35.7-47.0); Hemoglobin 12.5 GM/DL (12.0-16.0); Immature Granulocytes % 0.2 %; Immature Granulocytes Absolute 0.01 #; Lymphocytes # 0.9 10*3/uL (1.4-4.0); Lymphocytes % 15.2 % (21.3-54.2); Mean Corpuscular HGB Conc 33.5 GM/DL (32-36); Mean Corpuscular Hemoglobin 31 PG (27-34); Mean Platelet Volume 10.8 FL (9.6-12.0); Monocytes # 0.5 10*3/uL (0.11-0.8); Monocytes % 8.7 % (1.7-12.7); Neutrophils # 4.3 10*3/uL (1.4-7.4); Neutrophils % 75.4 % (38.7-73.9); Platelet Count 206 T/CUMM (130-400); Red Cell Distribution Width 12.9 % (9.3-17.3); White Blood Count 5.7 T/CUMM (4-12)
[2017-07-09] MEDS ORDERED: BISACODYL 5 MG TABLET PO ONE ×2 (12:00→19:00)
[2017-07-09 12:02] LABS: Albumin 3.3 G/DL (3.4-5.0); Bilirubin,Total 0.8 MG/DL (0.2-1.0); Calcium 8.6 MG/DL (8.5-10.1); Osmolality,Calculated 269.1 MOS/KG (273-304); Potassium 3.3 MMOL/L (3.5-5.1); Total Protein 6.6 G/DL (6.4-8.3)
[2017-07-09] MEDS ORDERED: ACETAMINOPHEN 325 MG TABLET PO PRN (14:53)
[2017-07-09] MEDS ORDERED: ONDANSETRON 4 MG/2 ML VIAL IV PRN (14:53)
[2017-07-09] MEDS: SODIUM CHLORIDE 0.9% 1,000 ML IV SCH (15:54)
[2017-07-09] MEDS: POTASSIUM CHLORIDE 20 MEQ TABLET PO PRN ×3 (17:00→23:30)
[2017-07-09] MEDS ORDERED: POLYETHYLENE GLYCOL POWDER 255 GM BOTTLE PO ONE (18:00)
[2017-07-09 18:53] LABS: Hemoglobin 13.3 GM/DL (12.0-16.0)
[2017-07-09 22:44] LABS: Hematocrit 41.2 VOL% (35.7-47.0); Hemoglobin 13.6 GM/DL (12.0-16.0)
[2017-07-09] MEDS ORDERED: DILTIAZEM INJ 100 MG in SODIUM CHLORIDE 0.9% 100 ML IV SCH (23:10)
[2017-07-09] MEDS ORDERED: hydrALAZINE 20 MG/1 ML VIAL IV PRN (23:36)
[2017-07-10 05:35] LABS: Basophils % 0.4 % (0.0-0.8); Eosinophils % 0.2 % (0.00-10.9); Hematocrit 35.5 VOL% (35.7-47.0); Hemoglobin 12.3 GM/DL (12.0-16.0); Immature Granulocytes % 0.2 %; Immature Granulocytes Absolute 0.01 #; Lymphocytes % 18.1 % (21.3-54.2); Mean Corpuscular HGB Conc 34.6 GM/DL (32-36); Mean Corpuscular Hemoglobin 30 PG (27-34); Mean Corpuscular Volume 87.9 FL (87-102); Mean Platelet Volume 11.1 FL (9.6-12.0); Monocytes # 0.6 10*3/uL (0.11-0.8); Neutrophils # 3.7 10*3/uL (1.4-7.4); Neutrophils % 70.1 % (38.7-73.9); Platelet Count 213 T/CUMM (130-400); Red Blood Count 4.04 MC/CUMM (3.8-5.5); Red Cell Distribution Width 13.2 % (9.3-17.3); White Blood Count 5.3 T/CUMM (4-12)
[2017-07-10 06:02] LABS: Calcium 8.8 MG/DL (8.5-10.1); Osmolality,Calculated 270.8 MOS/KG (273-304); Potassium 3.8 MMOL/L (3.5-5.1)
[2017-07-10] MEDS: SODIUM CHLORIDE 0.9% 1,000 ML IV SCH ×2 (06:40→18:06)
[2017-07-10] MEDS ORDERED: PANTOPRAZOLE 40 MG TABLET PO SCH (09:00)
[2017-07-10] MEDS: METOPROLOL SUCCINATE XL 50 MG TABLET PO SCH ×2 (09:15→13:22)
[2017-07-10] MEDS: PANTOPRAZOLE 40 MG VIAL IV SCH (09:20)
[2017-07-10] MEDS ORDERED: LIDOCAINE 1% 5 ML VIAL ONE (10:49)
[2017-07-10] MEDS ORDERED: PROPOFOL 200 MG/20 ML VIAL IV ONE (10:49)
[2017-07-10] MEDS: POTASSIUM CHLORIDE 20 MEQ TABLET PO PRN (13:22)
[2017-07-11 05:13] LABS: Basophils % 0.9 % (0.0-0.8); Eosinophils # 0.1 10*3/uL (0.0-0.87); Eosinophils % 2.4 % (0.00-10.9); Hematocrit 32.2 VOL% (35.7-47.0); Hemoglobin 10.8 GM/DL (12.0-16.0); Immature Granulocytes % 0.2 %; Immature Granulocytes Absolute 0.01 #; Lymphocytes % 46.9 % (21.3-54.2); Mean Corpuscular HGB Conc 33.5 GM/DL (32-36); Mean Corpuscular Hemoglobin 30 PG (27-34); Mean Corpuscular Volume 89.9 FL (87-102); Monocytes # 0.5 10*3/uL (0.11-0.8); Monocytes % 11.6 % (1.7-12.7); Neutrophils # 1.6 10*3/uL (1.4-7.4); Platelet Count 181 T/CUMM (130-400); Red Blood Count 3.58 MC/CUMM (3.8-5.5); Red Cell Distribution Width 13.3 % (9.3-17.3); White Blood Count 4.2 T/CUMM (4-12)
[2017-07-11 05:27] LABS: Calcium 8.3 MG/DL (8.5-10.1); Osmolality,Calculated 275.4 MOS/KG (273-304); Potassium 3.8 MMOL/L (3.5-5.1)
[2017-07-11 05:40] LABS: Eosinophils 1 % (0-10); Lymphocytes 46 % (20-55); Platelet Estimate Normal; Segmented Neutrophils 44 % (50-85); Total Cells Counted 100
[2017-07-11 05:41] LABS: Atypical Lymphocytes Few; Giant Platelets Few; Hypochromasia 1+
[2017-07-11] MEDS: SODIUM CHLORIDE 0.9% 1,000 ML IV SCH ×2 (05:50→13:15)
[2017-07-11] MEDS: METOPROLOL SUCCINATE XL 50 MG TABLET PO SCH (08:50)
[2017-07-11] MEDS: PANTOPRAZOLE 40 MG VIAL IV SCH (08:50)
[2017-07-11 13:16] VITALS: BP 144/78
== END 2017-07-11 12:33 | disposition home health service (06) | DRG 377 ==
LOC: N.ED 09:49 → SUATTDRO 11:45 → N.EDINP 11:45 → N.4E 14:41 → N.TELEN 21:41
PROVIDERS: ATTEND Internal Medicine

== ENCOUNTER 2018-02-08 14:29 | Inpatient (IN) ==
[2018-02-08 17:05] LABS: Albumin 3.5 G/DL (3.4-5.0); Bilirubin,Total 1.4 MG/DL (0.2-1.0); Calcium 9.3 MG/DL (8.5-10.1); Total Protein 7.6 G/DL (6.4-8.3)
[2018-02-08 17:06] LABS: Potassium 3.5 MMOL/L (3.5-5.1)
[2018-02-08 17:09] LABS: Basophils % 1.2 % (0.0-0.8); Eosinophils % 0.9 % (0.00-10.9); Hematocrit 41.5 VOL% (35.7-47.0); Immature Granulocytes % 0.3 %; Immature Granulocytes Absolute 0.01 #; Lymphocytes # 1.5 10*3/uL (1.4-4.0); Lymphocytes % 44.8 % (21.3-54.2); Mean Corpuscular HGB Conc 33.7 GM/DL (32-36); Mean Corpuscular Hemoglobin 30 PG (27-34); Mean Platelet Volume 11.2 FL (9.6-12.0); Monocytes # 0.4 10*3/uL (0.11-0.8); Monocytes % 12.7 % (1.7-12.7); Neutrophils # 1.4 10*3/uL (1.4-7.4); Neutrophils % 40.1 % (38.7-73.9); Platelet Count 196 T/CUMM (130-400); Red Blood Count 4.61 MC/CUMM (3.8-5.5); Red Cell Distribution Width 14.2 % (9.3-17.3); White Blood Count 3.4 T/CUMM (4-12)
[2018-02-08 18:15] LABS: Platelet Estimate Normal
[2018-02-08 21:02] LABS: INR 1.1; PT Patient Result 11.5 SECS; Partial Thromboplastin Time 28.7 SECS (0-40)
[2018-02-08] MEDS ORDERED: ONDANSETRON 4 MG/2 ML VIAL IV PRN (22:38)
[2018-02-08] MEDS ORDERED: ACETAMINOPHEN 325 MG TABLET PO PRN (22:38)
[2018-02-08] MEDS ORDERED: guaiFENesin/DM ER 600-30 MG TABLET PO PRN (22:38)
[2018-02-09] MEDS: SODIUM CHLORIDE 0.45% 1,000 ML IV SCH ×2 (02:15→15:07)
[2018-02-09 05:20] LABS: Basophils % 0.7 % (0.0-0.8); Eosinophils % 1.4 % (0.00-10.9); Hematocrit 32.6 VOL% (35.7-47.0); Immature Granulocytes % 0.4 %; Immature Granulocytes Absolute 0.01 #; Lymphocytes # 1.2 10*3/uL (1.4-4.0); Lymphocytes % 43.6 % (21.3-54.2); Mean Corpuscular HGB Conc 33.7 GM/DL (32-36); Mean Corpuscular Hemoglobin 30 PG (27-34); Mean Corpuscular Volume 89.8 FL (87-102); Mean Platelet Volume 11.6 FL (9.6-12.0); Monocytes # 0.4 10*3/uL (0.11-0.8); Neutrophils # 1.1 10*3/uL (1.4-7.4); Neutrophils % 38.9 % (38.7-73.9); Platelet Count 176 T/CUMM (130-400); Red Blood Count 3.63 MC/CUMM (3.8-5.5); White Blood Count 2.8 T/CUMM (4-12)
[2018-02-09 05:40] LABS: Hypochromasia 1+; Platelet Estimate Adequate
[2018-02-09 05:47] LABS: Calcium 8.9 MG/DL (8.5-10.1); Osmolality,Calculated 277.3 MOS/KG (273-304); Potassium 3.2 MMOL/L (3.5-5.1)
[2018-02-09 05:58] LABS: Troponin I < 0.015 NG/ML (0.00-0.045)
[2018-02-09] MEDS: POTASSIUM CHLORIDE 20 MEQ TABLET PO PRN ×2 (06:49→09:30)
[2018-02-09 08:27] LABS: Troponin I 0.023 NG/ML (0.00-0.045)
[2018-02-09] MEDS ORDERED: ENOXAPARIN 40 MG/0.4 ML SYRINGE SUBCUT SCH (09:00)
[2018-02-09] MEDS: POLYETHYLENE GLYCOL POWDER 17 GM PACK PO SCH (09:29)
[2018-02-09] MEDS: PANTOPRAZOLE 40 MG TABLET PO SCH (09:30)
[2018-02-09] MEDS: CLORAZEPATE 3.75 MG TABLET PO SCH (09:31)
[2018-02-09] MEDS: POTASSIUM CHLORIDE 20 MEQ TABLET PO SCH ×2 (14:13→21:29)
[2018-02-09] MEDS: ACETAMINOPHEN 325 MG TABLET PO SCH ×2 (14:14→21:28)
[2018-02-09 16:48] LABS: Troponin I < 0.015 NG/ML (0.00-0.045)
[2018-02-09] MEDS ORDERED: ATORVASTATIN 10 MG TABLET PO SCH (21:00)
[2018-02-09] MEDS ORDERED: CALCIUM (CARBONATE)/VITAMIN D 500 MG-200 UNIT TABLET PO SCH (21:00)
[2018-02-10] MEDS: SODIUM CHLORIDE 0.45% 1,000 ML IV SCH (04:40)
[2018-02-10 04:59] LABS: Basophils % 1.2 % (0.0-0.8); Eosinophils % 1.6 % (0.00-10.9); Hematocrit 33.3 VOL% (35.7-47.0); Lymphocytes # 1.6 10*3/uL (1.4-4.0); Lymphocytes % 66.9 % (21.3-54.2); Mean Corpuscular Hemoglobin 30 PG (27-34); Mean Platelet Volume 11.8 FL (9.6-12.0); Monocytes # 0.4 10*3/uL (0.11-0.8); Monocytes % 15.1 % (1.7-12.7); Neutrophils # 0.4 10*3/uL (1.4-7.4); Neutrophils % 15.2 % (38.7-73.9); Platelet Count 169 T/CUMM (130-400); Red Blood Count 3.62 MC/CUMM (3.8-5.5); Red Cell Distribution Width 14.2 % (9.3-17.3); White Blood Count 2.5 T/CUMM (4-12)
[2018-02-10 05:11] LABS: Calcium 8.7 MG/DL (8.5-10.1); Osmolality,Calculated 271.7 MOS/KG (273-304)
[2018-02-10 05:26] LABS: Burr Cells Slight; Eosinophils 2 % (0-10); Hypochromasia 1+; Lymphocytes 68 % (20-55); Ovalocytes Slight; Platelet Estimate Normal; Segmented Neutrophils 15 % (50-85); Total Cells Counted 100
[2018-02-10 13:18] VITALS: BP 166/85
[2018-02-10] MEDS ORDERED: LIDOCAINE 2% 5 ML VIAL ONE (13:45)
[2018-02-10] MEDS ORDERED: PROPOFOL 200 MG/20 ML VIAL IV ONE (13:45)
[2018-02-10] MEDS: PANTOPRAZOLE 40 MG TABLET PO SCH (14:54)
[2018-02-10] MEDS: CLORAZEPATE 3.75 MG TABLET PO SCH (14:54)
[2018-02-10] MEDS: ACETAMINOPHEN 325 MG TABLET PO SCH (14:54)
[2018-02-10] MEDS: POLYETHYLENE GLYCOL POWDER 17 GM PACK PO SCH (14:54)
== END 2018-02-10 15:47 | disposition home health service (06) | DRG 392 ==
LOC: N.ED 14:29 → N.EDINP 22:38 → N.TELES 23:22
PROVIDERS: ADMIT Internal Medicine; ATTEND Internal Medicine

== ENCOUNTER 2018-04-01 17:41 | Observation (INO) ==
[2018-04-01 19:01] LABS: Basophils % 1.1 % (0.0-0.8); Eosinophils % 0.5 % (0.00-10.9); Hematocrit 41.1 VOL% (35.7-47.0); Hemoglobin 13.7 GM/DL (12.0-16.0); Immature Granulocytes % 0.3 %; Immature Granulocytes Absolute 0.01 #; Lymphocytes # 1.2 10*3/uL (1.4-4.0); Mean Corpuscular HGB Conc 33.3 GM/DL (32-36); Mean Corpuscular Hemoglobin 30 PG (27-34); Mean Corpuscular Volume 88.6 FL (87-102); Mean Platelet Volume 10.1 FL (9.6-12.0); Monocytes # 0.6 10*3/uL (0.11-0.8); Monocytes % 15.2 % (1.7-12.7); Neutrophils # 1.9 10*3/uL (1.4-7.4); Neutrophils % 50.9 % (38.7-73.9); Platelet Count 243 T/CUMM (130-400); Red Blood Count 4.64 MC/CUMM (3.8-5.5); Red Cell Distribution Width 13.9 % (9.3-17.3); White Blood Count 3.7 T/CUMM (4-12)
[2018-04-01 19:19] LABS: Ammonia < 10 UMOL/L (11-32)
[2018-04-01 19:29] LABS: Alanine Aminotransferase 19 U/L (13-56); Albumin 3.6 G/DL (3.4-5.0); Alkaline Phosphatase 131 U/L (45-117); Aspartate Amino Transferase 17 U/L (0-37); Blood Urea Nitrogen 14 MG/DL (7-18); Calcium 9.4 MG/DL (8.5-10.1); Glucose 79 MG/DL (74-106); Osmolality,Calculated 269.1 MOS/KG (273-304); Potassium 3.8 MMOL/L (3.5-5.1); Sodium 135 MMOL/L (136-145); Total Protein 8.3 G/DL (6.4-8.3)
[2018-04-01 20:06] LABS: Acetaminophen < 2.0 UG/ML (10-30); Salicylate < 2.8 MG/DL (2.8-20)
[2018-04-01 20:16] LABS: Barbiturates Screen,Urine Negative (Negative); Benzodiazepines Screen,Urine Negative (Negative); Cannabinoid Screen,Urine Negative (Negative); Opiate Screen,Urine Negative (Negative); Phencyclidine Screen,Urine Negative (Negative)
[2018-04-01 20:29] LABS: Apearance,Urine CLEAR (Clear); Bacteria,Urine Occasional /HPF (Few); Bilirubin,Urine Negative (Negative); Blood, Urine Negative (Negative); Glucose,Urine (UA) Negative (Negative); Hyaline Casts,Urine 4 /LPF (0-3); Ketones,Urine Negative (Negative); Mucus,Urine Occasional /LPF (Occasional); Nitrite,Urine Negative (Negative); Protein,Urine Negative; RBC,Urine 1 /HPF (0-4); Squamous Epithelial Cell,Urine Occasional /HPF (0-10); Urine Color Yellow (Yellow); Urine Specific Gravity 1.009 (1.001-1.035); Urine Urobilinogen < 2.0 EU/DL (0.2-1.0); WBC,Urine 1 /HPF (0-6)
[2018-04-01] MEDS ORDERED: ACETAMINOPHEN 325 MG TABLET PO PRN (21:18)
[2018-04-01] MEDS ORDERED: POLYETHYLENE GLYCOL POWDER 17 GM PACK PO PRN (21:21)
[2018-04-01] MEDS ORDERED: hydrOXYzine HCL 25 MG TABLET PO PRN (21:21)
[2018-04-01] MEDS ORDERED: ENOXAPARIN 40 MG/0.4 ML SYRINGE SUBCUT SCH (21:30)
[2018-04-01] MEDS ORDERED: ATORVASTATIN 10 MG TABLET PO SCH (21:30)
[2018-04-02] MEDS: APIXABAN 2.5 MG TABLET PO SCH ×2 (00:36→10:40)
[2018-04-02 06:26] LABS: Albumin 2.7 G/DL (3.4-5.0); Bilirubin,Total 0.9 MG/DL (0.2-1.0); Calcium 8.5 MG/DL (8.5-10.1); Osmolality,Calculated 272.8 MOS/KG (273-304); Potassium 3.7 MMOL/L (3.5-5.1); Total Protein 6.3 G/DL (6.4-8.3)
[2018-04-02] MEDS ORDERED: PANTOPRAZOLE 40 MG TABLET PO SCH (07:30)
[2018-04-02] MEDS ORDERED: METOPROLOL SUCCINATE XL 50 MG TABLET PO SCH (09:00)
[2018-04-02] MEDS ORDERED: DOCUSATE SODIUM 100 MG CAPSULE PO PRN (10:12)
[2018-04-02] MEDS ORDERED: MELATONIN 3 MG TABLET PO PRN (10:12)
[2018-04-02 10:59] VITALS: BP 121/77
[2018-04-02] MEDS ORDERED: CALCIUM (CARBONATE)/VITAMIN D 500 MG-200 UNIT TABLET PO SCH (18:00)
[2018-04-02] MEDS ORDERED: ATORVASTATIN 10 MG TABLET PO SCH (21:00)
[2018-04-02] MEDS ORDERED: METOPROLOL SUCCINATE XL 25 MG TABLET PO SCH (21:00)
[2018-04-03] MEDS ORDERED: CYANOCOBALAMIN 500 MCG TABLET PO SCH (09:00)
== END 2018-04-02 12:08 | disposition home health service (06) ==
LOC: N.ED 17:41 → N.3E 17:41
PROVIDERS: ADMIT Internal Medicine; ATTEND Internal Medicine

== ENCOUNTER 2021-03-16 09:53 | Inpatient (IN) ==
[2021-03-16] MEDS ORDERED: SODIUM CHLORIDE 0.9% 500 ML IV STA (10:19)
[2021-03-16 11:10] LABS: Basophils % 0.6 % (0.0-0.8); Eosinophils % 0.4 % (0.00-10.9); Hematocrit 39.8 VOL% (35.7-47.0); Immature Granulocytes Absolute 0.05 #; Lymphocytes # 1.5 10*3/uL (1.4-4.0); Lymphocytes % 29.7 % (21.3-54.2); Mean Corpuscular HGB Conc 32.7 GM/DL (32-36); Monocytes % 10.4 % (1.7-12.7); Neutrophils % 57.9 % (38.7-73.9); Platelet Count 246 T/CUMM (130-400); Red Blood Count 4.28 MC/CUMM (3.8-5.5); Red Cell Distribution Width 14.6 % (9.3-17.3); White Blood Count 5.1 T/CUMM (4-12)
[2021-03-16 11:19] LABS: Amorphous Crystals,Urine Occasional /HPF (Few); Bilirubin,Urine Negative (Negative); Blood, Urine Negative (Negative); Glucose,Urine (UA) Negative (Negative); Ketones,Urine 5 mg/dL (Negative); Mucus,Urine Occasional /LPF (Occasional); Nitrite,Urine Negative (Negative); Protein,Urine Negative; RBC,Urine <1 /HPF (0-4); Squamous Epithelial Cell,Urine Occasional /HPF (0-10); Urine Appearance CLEAR (Clear); Urine Color Yellow (Yellow)
[2021-03-16 11:51] LABS: Albumin 2.9 G/DL (3.4-5.0); Bilirubin,Total 0.9 MG/DL (0.20-1.00); Calcium 9.1 MG/DL (8.5-10.1); Osmolality,Calculated 276.4 MOS/KG (273-304); Potassium 3.5 MMOL/L (3.5-5.1); Total Protein 7.2 G/DL (6.4-8.2)
[2021-03-16] MEDS ORDERED: GLUCAGON 1 MG VIAL IM PRN (13:44)
[2021-03-16] MEDS ORDERED: ACETAMINOPHEN 325 MG TABLET PO PRN (13:45)
[2021-03-16] MEDS ORDERED: ONDANSETRON 4 MG/2 ML VIAL IV PRN (13:45)
[2021-03-16] MEDS ORDERED: ENOXAPARIN 40 MG/0.4 ML SYRINGE SUBCUT SCH (14:00)
[2021-03-16] MEDS ORDERED: PIPERACILLIN/TAZOBACTAM 3,375 MG in SODIUM CHLORIDE 0.9% 100 ML IV SCH (14:00)
[2021-03-16 16:45] LABS: Folate 14.73 NG/ML (5.38-24.0)
[2021-03-16] MEDS: METOPROLOL TARTRATE 5 MG/5 ML VIAL IV SCH (21:38)
[2021-03-16] MEDS: ATORVASTATIN 40 MG TABLET PO SCH (21:39)
[2021-03-16] MEDS: APIXABAN 2.5 MG TABLET PO SCH (21:39)
[2021-03-16] MEDS: PIPERACILLIN/TAZOBACTAM 3,375 MG in SODIUM CHLORIDE 0.9% 100 ML IV SCH (21:40)
[2021-03-16] MEDS: DEXTROSE 5% NACL 0.45% 1,000 ML IV SCH (21:41)
[2021-03-17] MEDS: METOPROLOL TARTRATE 5 MG/5 ML VIAL IV SCH ×4 (01:04→18:30)
[2021-03-17 05:30] LABS: Basophils # 0.1 10*3/uL (0.0-0.2); Basophils % 0.9 % (0.0-0.8); Eosinophils % 0.6 % (0.00-10.9); Hematocrit 38.4 VOL% (35.7-47.0); Hemoglobin 12.9 GM/DL (12.0-16.0); Immature Granulocytes % 0.7 %; Immature Granulocytes Absolute 0.04 #; Lymphocytes # 1.7 10*3/uL (1.4-4.0); Lymphocytes % 31.4 % (21.3-54.2); Mean Corpuscular HGB Conc 33.6 GM/DL (32-36); Mean Corpuscular Volume 93.4 FL (87-102); Mean Platelet Volume 10.3 FL (9.6-12.0); Monocytes % 13.3 % (1.7-12.7); Neutrophils % 53.1 % (38.7-73.9); Platelet Count 263 T/CUMM (130-400); Red Blood Count 4.11 MC/CUMM (3.8-5.5); Red Cell Distribution Width 14.3 % (9.3-17.3); White Blood Count 5.4 T/CUMM (4-12)
[2021-03-17 05:44] LABS: Albumin 2.9 G/DL (3.4-5.0); Bilirubin,Total 1.4 MG/DL (0.20-1.00); Calcium 9.7 MG/DL (8.5-10.1); Osmolality,Calculated 275.4 MOS/KG (273-304); Risk Ratio 4.52; Total Protein 7.2 G/DL (6.4-8.2); VLDL Cholesterol 11.2 MG/DL
[2021-03-17] MEDS: DEXTROSE 50% 25 GM/50 ML SYRINGE IV PRN (06:18)
[2021-03-17] MEDS: DEXTROSE 5% NACL 0.45% 1,000 ML IV SCH ×4 (07:48→21:01)
[2021-03-17] MEDS: PIPERACILLIN/TAZOBACTAM 3,375 MG in SODIUM CHLORIDE 0.9% 100 ML IV SCH ×2 (10:00→18:31)
[2021-03-17] MEDS: APIXABAN 2.5 MG TABLET PO SCH ×3 (10:18→20:42)
[2021-03-17] MEDS: CHOLECALCIFEROL 1,000 UNIT TABLET PO SCH ×2 (11:18→11:42)
[2021-03-17] MEDS ORDERED: ALBUTEROL/IPRATROPIUM 3 ML NEB RESP TX PRN (11:30)
[2021-03-17] MEDS: ATORVASTATIN 40 MG TABLET PO SCH (20:42)
[2021-03-17 21:46] LABS: Barbiturates Screen,Urine Negative (Negative); Benzodiazepines Screen,Urine Negative (Negative); Cannabinoid Screen,Urine Negative (Negative); Opiate Screen,Urine Negative (Negative); Phencyclidine Screen,Urine Negative (Negative)
[2021-03-18] MEDS: METOPROLOL TARTRATE 5 MG/5 ML VIAL IV SCH ×4 (00:36→17:43)
[2021-03-18] MEDS: PIPERACILLIN/TAZOBACTAM 3,375 MG in SODIUM CHLORIDE 0.9% 100 ML IV SCH ×2 (01:01→18:46)
[2021-03-18 04:49] LABS: Basophils % 0.6 % (0.0-0.8); Eosinophils # 0.1 10*3/uL (0.0-0.87); Eosinophils % 1.6 % (0.00-10.9); Hemoglobin 12.2 GM/DL (12.0-16.0); Immature Granulocytes % 0.4 %; Immature Granulocytes Absolute 0.02 #; Lymphocytes # 1.7 10*3/uL (1.4-4.0); Lymphocytes % 35.7 % (21.3-54.2); Mean Corpuscular HGB Conc 33.9 GM/DL (32-36); Mean Corpuscular Volume 90.2 FL (87-102); Mean Platelet Volume 10.5 FL (9.6-12.0); Monocytes % 14.8 % (1.7-12.7); Neutrophils % 46.9 % (38.7-73.9); Platelet Count 250 T/CUMM (130-400); Red Blood Count 3.99 MC/CUMM (3.8-5.5); White Blood Count 4.9 T/CUMM (4-12)
[2021-03-18] MEDS: DEXTROSE 5% NACL 0.45% 1,000 ML IV SCH ×2 (05:03→21:33)
[2021-03-18 05:09] LABS: Calcium 8.7 MG/DL (8.5-10.1); Osmolality,Calculated 274.4 MOS/KG (273-304); Potassium 2.7 MMOL/L (3.5-5.1)
[2021-03-18] MEDS: APIXABAN 2.5 MG TABLET PO SCH ×2 (08:27→21:14)
[2021-03-18] MEDS: METOPROLOL SUCCINATE XL 25 MG TABLET PO SCH (08:27)
[2021-03-18] MEDS: CHOLECALCIFEROL 1,000 UNIT TABLET PO SCH (08:27)
[2021-03-18] MEDS ORDERED: MAGNESIUM SULF RIDER 2 GM/50 ML PREMIX IV ONE ×2 (08:30→16:00)
[2021-03-18] MEDS: PANTOPRAZOLE 40 MG VIAL IV SCH (08:39)
[2021-03-18] MEDS: POTASSIUM CHLORIDE RIDER 10 MEQ/100 ML PREMIX IV SCH ×4 (08:39→14:56)
[2021-03-18] MEDS ORDERED: POTASSIUM CHLORIDE RIDER 10 MEQ/100 ML PREMIX IV SCH (15:00)
[2021-03-18] MEDS: ATORVASTATIN 40 MG TABLET PO SCH (21:14)
[2021-03-19] MEDS: PIPERACILLIN/TAZOBACTAM 3,375 MG in SODIUM CHLORIDE 0.9% 100 ML IV SCH ×3 (00:37→23:32)
[2021-03-19] MEDS: METOPROLOL TARTRATE 5 MG/5 ML VIAL IV SCH ×5 (00:37→23:32)
[2021-03-19 06:34] LABS: Basophils % 0.6 % (0.0-0.8); Eosinophils # 0.1 10*3/uL (0.0-0.87); Eosinophils % 1.6 % (0.00-10.9); Hematocrit 35.8 VOL% (35.7-47.0); Hemoglobin 12.2 GM/DL (12.0-16.0); Immature Granulocytes % 0.4 %; Immature Granulocytes Absolute 0.02 #; Lymphocytes % 40.6 % (21.3-54.2); Mean Corpuscular HGB Conc 34.1 GM/DL (32-36); Mean Corpuscular Volume 92.5 FL (87-102); Mean Platelet Volume 10.2 FL (9.6-12.0); Monocytes % 17.1 % (1.7-12.7); Neutrophils % 39.7 % (38.7-73.9); Platelet Count 254 T/CUMM (130-400); Red Blood Count 3.87 MC/CUMM (3.8-5.5); Red Cell Distribution Width 14.2 % (9.3-17.3); White Blood Count 4.9 T/CUMM (4-12)
[2021-03-19 06:56] LABS: Calcium 8.6 MG/DL (8.5-10.1); Osmolality,Calculated 274.5 MOS/KG (273-304); Potassium 3.2 MMOL/L (3.5-5.1)
[2021-03-19 07:02] LABS: Eosinophils 2 % (0-10); Lymphocytes 41 % (20-55); Metamyelocytes 1 %; Platelet Estimate Normal; Segmented Neutrophils 42 % (50-85); Total Cells Counted 100
[2021-03-19 07:03] LABS: Anisocytosis 1+; Burr Cells Few; Target Cells Few
[2021-03-19] MEDS: POTASSIUM CHLORIDE RIDER 10 MEQ/100 ML PREMIX IV SCH ×4 (09:01→13:12)
[2021-03-19] MEDS: APIXABAN 2.5 MG TABLET PO SCH ×2 (09:50→20:37)
[2021-03-19] MEDS: ASPIRIN EC 81 MG TABLET PO SCH (09:50)
[2021-03-19] MEDS: METOPROLOL SUCCINATE XL 25 MG TABLET PO SCH (09:50)
[2021-03-19] MEDS: CHOLECALCIFEROL 1,000 UNIT TABLET PO SCH (09:50)
[2021-03-19] MEDS: PANTOPRAZOLE 40 MG VIAL IV SCH (09:52)
[2021-03-19] MEDS: DEXTROSE 5% NACL 0.45% 1,000 ML IV SCH (18:31)
[2021-03-19] MEDS: ATORVASTATIN 40 MG TABLET PO SCH (20:37)
[2021-03-20] MEDS: DEXTROSE 5% NACL 0.45% 1,000 ML IV SCH ×3 (05:06→23:09)
[2021-03-20] MEDS: METOPROLOL TARTRATE 5 MG/5 ML VIAL IV SCH ×3 (05:18→17:46)
[2021-03-20 05:24] LABS: Basophils % 0.5 % (0.0-0.8); Eosinophils # 0.1 10*3/uL (0.0-0.87); Eosinophils % 1.6 % (0.00-10.9); Hematocrit 34.2 VOL% (35.7-47.0); Hemoglobin 11.2 GM/DL (12.0-16.0); Immature Granulocytes % 0.8 %; Immature Granulocytes Absolute 0.03 #; Lymphocytes # 1.5 10*3/uL (1.4-4.0); Lymphocytes % 40.3 % (21.3-54.2); Mean Corpuscular HGB Conc 32.7 GM/DL (32-36); Mean Corpuscular Volume 92.4 FL (87-102); Mean Platelet Volume 10.7 FL (9.6-12.0); Monocytes % 13.7 % (1.7-12.7); Neutrophils % 43.1 % (38.7-73.9); Platelet Count 253 T/CUMM (130-400); Red Cell Distribution Width 14.5 % (9.3-17.3); White Blood Count 3.8 T/CUMM (4-12)
[2021-03-20 06:02] LABS: Calcium 8.6 MG/DL (8.5-10.1); Osmolality,Calculated 277.5 MOS/KG (273-304); Potassium 3.9 MMOL/L (3.5-5.1)
[2021-03-20] MEDS: CHOLECALCIFEROL 1,000 UNIT TABLET PO SCH (10:39)
[2021-03-20] MEDS: METOPROLOL SUCCINATE XL 25 MG TABLET PO SCH (10:39)
[2021-03-20] MEDS: APIXABAN 2.5 MG TABLET PO SCH (10:39)
[2021-03-20] MEDS: OMEPRAZOLE ODT 20 MG TABLET PER TUBE SCH (10:39)
[2021-03-20] MEDS: ASPIRIN EC 81 MG TABLET PO SCH (10:40)
[2021-03-20] MEDS: PIPERACILLIN/TAZOBACTAM 3,375 MG in SODIUM CHLORIDE 0.9% 100 ML IV SCH ×2 (11:55→21:27)
[2021-03-20] MEDS: ATORVASTATIN 40 MG TABLET PO SCH (21:27)
[2021-03-21] MEDS: METOPROLOL TARTRATE 5 MG/5 ML VIAL IV SCH ×4 (00:12→19:19)
[2021-03-21] MEDS: DEXTROSE 5% NACL 0.45% 1,000 ML IV SCH ×2 (02:10→22:23)
[2021-03-21] MEDS: PIPERACILLIN/TAZOBACTAM 3,375 MG in SODIUM CHLORIDE 0.9% 100 ML IV SCH ×3 (04:24→21:03)
[2021-03-21 05:58] LABS: Basophils # 0.1 10*3/uL (0.0-0.2); Basophils % 1.1 % (0.0-0.8); Eosinophils # 0.1 10*3/uL (0.0-0.87); Eosinophils % 2.7 % (0.00-10.9); Hematocrit 34.8 VOL% (35.7-47.0); Hemoglobin 11.5 GM/DL (12.0-16.0); Immature Granulocytes % 0.9 %; Immature Granulocytes Absolute 0.04 #; Lymphocytes # 1.6 10*3/uL (1.4-4.0); Lymphocytes % 36.6 % (21.3-54.2); Mean Corpuscular Volume 94.1 FL (87-102); Mean Platelet Volume 10.7 FL (9.6-12.0); Monocytes % 14.3 % (1.7-12.7); Neutrophils % 44.4 % (38.7-73.9); Platelet Count 243 T/CUMM (130-400); Red Cell Distribution Width 14.7 % (9.3-17.3); White Blood Count 4.4 T/CUMM (4-12)
[2021-03-21 06:16] LABS: Calcium 8.5 MG/DL (8.5-10.1); Osmolality,Calculated 280.3 MOS/KG (273-304)
[2021-03-21] MEDS: CHOLECALCIFEROL 1,000 UNIT TABLET PO SCH (09:40)
[2021-03-21] MEDS: OMEPRAZOLE ODT 20 MG TABLET PER TUBE SCH (09:40)
[2021-03-21] MEDS: ASPIRIN EC 81 MG TABLET PO SCH (09:40)
[2021-03-21] MEDS: METOPROLOL SUCCINATE XL 25 MG TABLET PO SCH (09:40)
[2021-03-21] MEDS: ATORVASTATIN 40 MG TABLET PO SCH (21:04)
[2021-03-22] MEDS: METOPROLOL TARTRATE 5 MG/5 ML VIAL IV SCH ×4 (00:55→18:53)
[2021-03-22] MEDS: PIPERACILLIN/TAZOBACTAM 3,375 MG in SODIUM CHLORIDE 0.9% 100 ML IV SCH ×3 (05:08→21:21)
[2021-03-22 07:05] LABS: Basophils % 0.8 % (0.0-0.8); Eosinophils # 0.2 10*3/uL (0.0-0.87); Hematocrit 35.4 VOL% (35.7-47.0); Hemoglobin 11.5 GM/DL (12.0-16.0); Immature Granulocytes % 0.8 %; Immature Granulocytes Absolute 0.04 #; Lymphocytes # 1.9 10*3/uL (1.4-4.0); Lymphocytes % 37.2 % (21.3-54.2); Mean Corpuscular HGB Conc 32.5 GM/DL (32-36); Mean Corpuscular Volume 94.7 FL (87-102); Mean Platelet Volume 10.9 FL (9.6-12.0); Monocytes % 12.7 % (1.7-12.7); Neutrophils % 45.5 % (38.7-73.9); Platelet Count 265 T/CUMM (130-400); Red Blood Count 3.74 MC/CUMM (3.8-5.5); Red Cell Distribution Width 14.9 % (9.3-17.3); White Blood Count 5.1 T/CUMM (4-12)
[2021-03-22 07:35] LABS: Osmolality,Calculated 279.3 MOS/KG (273-304); Potassium 4.1 MMOL/L (3.5-5.1)
[2021-03-22] MEDS: CHOLECALCIFEROL 1,000 UNIT TABLET PO SCH (10:56)
[2021-03-22] MEDS: OMEPRAZOLE ODT 20 MG TABLET PER TUBE SCH (10:56)
[2021-03-22] MEDS: METOPROLOL SUCCINATE XL 25 MG TABLET PO SCH (10:56)
[2021-03-22] MEDS: ASPIRIN EC 81 MG TABLET PO SCH (10:56)
[2021-03-22] MEDS: ATORVASTATIN 40 MG TABLET PO SCH (21:21)
[2021-03-22] MEDS: DEXTROSE 5% NACL 0.45% 1,000 ML IV SCH (21:21)
[2021-03-23] MEDS: METOPROLOL TARTRATE 5 MG/5 ML VIAL IV SCH ×5 (00:05→23:46)
[2021-03-23] MEDS: PIPERACILLIN/TAZOBACTAM 3,375 MG in SODIUM CHLORIDE 0.9% 100 ML IV SCH ×3 (04:30→23:45)
[2021-03-23 06:09] LABS: Basophils # 0.1 10*3/uL (0.0-0.2); Basophils % 1.3 % (0.0-0.8); Eosinophils # 0.2 10*3/uL (0.0-0.87); Eosinophils % 3.3 % (0.00-10.9); Hematocrit 38.3 VOL% (35.7-47.0); Hemoglobin 12.1 GM/DL (12.0-16.0); Immature Granulocytes % 0.6 %; Immature Granulocytes Absolute 0.03 #; Lymphocytes # 2.1 10*3/uL (1.4-4.0); Lymphocytes % 44.6 % (21.3-54.2); Mean Corpuscular HGB Conc 31.6 GM/DL (32-36); Mean Corpuscular Volume 95.8 FL (87-102); Mean Platelet Volume 10.7 FL (9.6-12.0); Monocytes % 12.3 % (1.7-12.7); Neutrophils % 37.9 % (38.7-73.9); Platelet Count 224 T/CUMM (130-400); Red Cell Distribution Width 14.7 % (9.3-17.3); White Blood Count 4.8 T/CUMM (4-12)
[2021-03-23 06:42] LABS: Calcium 8.9 MG/DL (8.5-10.1); Potassium 4.1 MMOL/L (3.5-5.1)
[2021-03-23 07:29] LABS: Hypochromasia 1+; Lymphocytes 49 % (20-55); Segmented Neutrophils 43 % (50-85); Total Cells Counted 100
[2021-03-23 07:30] LABS: Microcytosis Slight; Ovalocytes Slight; Platelet Estimate Normal; Target Cells Slight
[2021-03-23] MEDS: OMEPRAZOLE ODT 20 MG TABLET PER TUBE SCH ×2 (08:58→08:59)
[2021-03-23] MEDS: CHOLECALCIFEROL 1,000 UNIT TABLET PO SCH ×2 (08:58)
[2021-03-23] MEDS: ASPIRIN EC 81 MG TABLET PO SCH ×2 (08:58)
[2021-03-23] MEDS: METOPROLOL SUCCINATE XL 25 MG TABLET PO SCH ×2 (08:58)
[2021-03-23] MEDS: AMINO ACIDS/DEXT/LYTES 4.25-5% 2,000 ML IV SCH (18:46)
[2021-03-23] MEDS: ATORVASTATIN 40 MG TABLET PO SCH (20:53)
[2021-03-24] MEDS: PIPERACILLIN/TAZOBACTAM 3,375 MG in SODIUM CHLORIDE 0.9% 100 ML IV SCH (03:21)
[2021-03-24] MEDS: METOPROLOL TARTRATE 5 MG/5 ML VIAL IV SCH ×3 (06:15→19:30)
[2021-03-24] MEDS: METOPROLOL SUCCINATE XL 25 MG TABLET PO SCH (11:21)
[2021-03-24] MEDS: OMEPRAZOLE ODT 20 MG TABLET PER TUBE SCH (11:21)
[2021-03-24] MEDS: CHOLECALCIFEROL 1,000 UNIT TABLET PO SCH (11:21)
[2021-03-24] MEDS: ASPIRIN EC 81 MG TABLET PO SCH (11:21)
[2021-03-24] MEDS: DEXTROSE 5% NACL 0.45% 1,000 ML IV SCH ×2 (11:59→12:00)
[2021-03-24] MEDS: AMINO ACIDS/DEXT/LYTES 4.25-5% 2,000 ML IV SCH (19:36)
[2021-03-24] MEDS: ATORVASTATIN 40 MG TABLET PO SCH (21:13)
[2021-03-25] MEDS: METOPROLOL TARTRATE 5 MG/5 ML VIAL IV SCH ×4 (00:48→18:05)
[2021-03-25 06:21] LABS: Basophils # 0.1 10*3/uL (0.0-0.2); Basophils % 1.2 % (0.0-0.8); Eosinophils # 0.1 10*3/uL (0.0-0.87); Eosinophils % 3.2 % (0.00-10.9); Hematocrit 37.2 VOL% (35.7-47.0); Immature Granulocytes % 0.5 %; Immature Granulocytes Absolute 0.02 #; Lymphocytes # 1.6 10*3/uL (1.4-4.0); Lymphocytes % 40.3 % (21.3-54.2); Mean Corpuscular HGB Conc 32.3 GM/DL (32-36); Mean Corpuscular Volume 93.5 FL (87-102); Mean Platelet Volume 11.1 FL (9.6-12.0); Monocytes % 13.6 % (1.7-12.7); Neutrophils % 41.2 % (38.7-73.9); Platelet Count 272 T/CUMM (130-400); Red Blood Count 3.98 MC/CUMM (3.8-5.5); Red Cell Distribution Width 14.3 % (9.3-17.3)
[2021-03-25 06:45] LABS: Calcium 9.3 MG/DL (8.5-10.1); Osmolality,Calculated 275.7 MOS/KG (273-304); Potassium 3.5 MMOL/L (3.5-5.1)
[2021-03-25] MEDS: METOPROLOL SUCCINATE XL 25 MG TABLET PO SCH (08:36)
[2021-03-25] MEDS: ASPIRIN EC 81 MG TABLET PO SCH (08:36)
[2021-03-25] MEDS: CHOLECALCIFEROL 1,000 UNIT TABLET PO SCH (08:37)
[2021-03-25] MEDS: PANTOPRAZOLE 40 MG VIAL IV SCH (08:44)
[2021-03-25] MEDS: DEXTROSE 5% NACL 0.45% 1,000 ML IV SCH (12:57)
[2021-03-25] MEDS: ATORVASTATIN 40 MG TABLET PO SCH (22:21)
[2021-03-25] MEDS: AMINO ACIDS/DEXT/LYTES 4.25-5% 2,000 ML IV SCH (23:54)
[2021-03-26] MEDS: METOPROLOL TARTRATE 5 MG/5 ML VIAL IV SCH ×4 (00:41→18:36)
[2021-03-26 05:17] LABS: Basophils % 0.9 % (0.0-0.8); Eosinophils # 0.1 10*3/uL (0.0-0.87); Eosinophils % 2.1 % (0.00-10.9); Hematocrit 36.3 VOL% (35.7-47.0); Immature Granulocytes % 0.2 %; Immature Granulocytes Absolute 0.01 #; Lymphocytes # 1.7 10*3/uL (1.4-4.0); Lymphocytes % 39.1 % (21.3-54.2); Mean Corpuscular HGB Conc 33.1 GM/DL (32-36); Mean Corpuscular Volume 93.1 FL (87-102); Mean Platelet Volume 10.9 FL (9.6-12.0); Monocytes % 14.8 % (1.7-12.7); Neutrophils % 42.9 % (38.7-73.9); Platelet Count 253 T/CUMM (130-400); Red Cell Distribution Width 14.3 % (9.3-17.3); White Blood Count 4.3 T/CUMM (4-12)
[2021-03-26 05:30] LABS: INR 1.1; PT Patient Result 12.4 SECS (10.5-12.0)
[2021-03-26 05:46] LABS: Calcium 9.1 MG/DL (8.5-10.1); Osmolality,Calculated 275.8 MOS/KG (273-304); Potassium 3.7 MMOL/L (3.5-5.1)
[2021-03-26] MEDS: ASPIRIN EC 81 MG TABLET PO SCH (08:55)
[2021-03-26] MEDS: METOPROLOL SUCCINATE XL 25 MG TABLET PO SCH ×2 (08:56→13:16)
[2021-03-26] MEDS: CHOLECALCIFEROL 1,000 UNIT TABLET PO SCH (08:56)
[2021-03-26] MEDS: PANTOPRAZOLE 40 MG VIAL IV SCH (09:41)
[2021-03-26] MEDS: LACTATED RINGERS 1,000 ML IV SCH (10:12)
[2021-03-26] MEDS ORDERED: propofoL 200 MG/20 ML VIAL IV ONE (11:48)
[2021-03-26] MEDS ORDERED: LIDOCAINE 2% 5 ML VIAL ONE (11:48)
[2021-03-26] MEDS: DEXTROSE 50% 25 GM/50 ML SYRINGE IV PRN (13:22)
[2021-03-26] MEDS: ATORVASTATIN 40 MG TABLET PO SCH (20:37)
[2021-03-26] MEDS: AMINO ACIDS/DEXT/LYTES 4.25-5% 2,000 ML IV SCH (23:27)
[2021-03-27] MEDS: METOPROLOL TARTRATE 5 MG/5 ML VIAL IV SCH ×3 (01:16→12:11)
[2021-03-27 05:34] LABS: Basophils % 0.5 % (0.0-0.8); Eosinophils # 0.1 10*3/uL (0.0-0.87); Eosinophils % 1.3 % (0.00-10.9); Hematocrit 33.1 VOL% (35.7-47.0); Hemoglobin 10.9 GM/DL (12.0-16.0); Immature Granulocytes % 0.2 %; Immature Granulocytes Absolute 0.01 #; Lymphocytes # 1.5 10*3/uL (1.4-4.0); Lymphocytes % 27.7 % (21.3-54.2); Mean Corpuscular HGB Conc 32.9 GM/DL (32-36); Mean Corpuscular Volume 94.3 FL (87-102); Mean Platelet Volume 10.5 FL (9.6-12.0); Monocytes % 15.9 % (1.7-12.7); Neutrophils % 54.4 % (38.7-73.9); Platelet Count 219 T/CUMM (130-400); Red Blood Count 3.51 MC/CUMM (3.8-5.5); Red Cell Distribution Width 14.2 % (9.3-17.3); White Blood Count 5.5 T/CUMM (4-12)
[2021-03-27 05:58] LABS: Calcium 8.9 MG/DL (8.5-10.1); Osmolality,Calculated 280.4 MOS/KG (273-304); Potassium 3.8 MMOL/L (3.5-5.1)
[2021-03-27 06:02] LABS: Eosinophils 4 % (0-10); Lymphocytes 33 % (20-55); Segmented Neutrophils 52 % (50-85); Total Cells Counted 100
[2021-03-27 06:03] LABS: Hypochromasia 1+; Microcytosis 1+; Ovalocytes Slight; Platelet Estimate Normal
[2021-03-27 06:04] LABS: Atypical Lymphocytes Few
[2021-03-27] MEDS: LACTATED RINGERS 1,000 ML IV SCH (09:14)
[2021-03-27] MEDS: CHOLECALCIFEROL 1,000 UNIT TABLET PO SCH (09:44)
[2021-03-27] MEDS: METOPROLOL SUCCINATE XL 25 MG TABLET PO SCH (09:45)
[2021-03-27] MEDS: ASPIRIN EC 81 MG TABLET PO SCH (09:45)
[2021-03-27] MEDS: PANTOPRAZOLE 40 MG VIAL IV SCH (09:54)
[2021-03-27 13:22] VITALS: BP 115/79
[2021-03-27] MEDS: DEXTROSE 5% NACL 0.45% 1,000 ML IV SCH (13:29)
== END 2021-03-27 13:31 | disposition hospice, home (50) | DRG 64 ==
LOC: EDUNIT# → N.ED 09:53 → N.EDINP 13:44 → SUATTDRO 13:44 → N.2W 17:15 → N.2E 03-20 11:55
PROVIDERS: ADMIT Internal Medicine; ATTEND Internal Medicine
PROC: EGDWPEG (ICD-10-PCS; 2021-03-26 10:50)